=== PATIENT | female | born 1955 | race Caucasian/White ===

== ENCOUNTER 2024-07-02 13:55 | Outpatient (CLI) | payer MEDICARE, SELFPAY ==
--- NOTE | 2024-07-02 14:40 | ECG_ITS ---
Test Date: 2024-07-02 14:48:28 Measurements Intervals [place] Rate: 88 P: 42 MA: 212 QRS: -9 QRSD: 106 T: 39 QT: 357 QTc: 433 Interpretive Statements SINUS RHYTHM WITH FIRST DEGREE AV BLOCK INCOMPLETE RIGHT BUNDLE BRANCH BLOC DELAYED PRECORDIAL R/S TRANSITION BASELINE ARTIFACT- I, II, III, AVR, AVL BORDERLINE ECG No previous ECG available for comparison Electronically Signed On 07-02-2024 14:55:23 ACCOUNTING RECRUITER by Magdaleno Lyle D.O.
[2024-07-02 15:02] LABS: Hematocrit 42.3 % (37.0-47.0); Hemoglobin 14.1 g/dL (12.0-15.0); Mean Corpuscular HGB Conc 33.3 g/dl (32-36); Mean Corpuscular Hemoglobin 31.7 pg (26-34); Mean Corpuscular Volume 95.1 fl (80-100); Mean Platelet Volume 9.8 fl (7.4-10.4); Platelet Count Result 213 k/mm3 (150-375); Red Blood Count 4.45 M/mm3 (4.2-5.4); Red Cell Distribution Width 12.2 % (11.5-14.5)
[2024-07-02 15:03] LABS: Add Urine Microscopic? NO; Appearance Urine Clear (Clear); Bilirubin Urine Negative (Negative); Blood Urine Negative (Negative); Color Urine Yellow (Yellow); Glucose Urine UA Negative (Negative); Ketones Urine Negative (Negative); Leukocyte Esterase Ur Negative LEU/UL (Negative); Nitrate Urine Negative (Negative); Protein Urine Negative (Negative); Specific Grav Ur 1.005 (1.001-1.035); Urobilinogen Urine 0.2 mg/dL (<2.0); pH Urine 5.5 (5.0-9.0)
[2024-07-02 15:15] LABS: Anion Gap 13 mmol/L (4-12); Blood Urea Nitrogen 11 mg/dL (7-17); Calcium 9.7 mg/dL (8.4-10.2); Carbon Dioxide 25 mmol/L (22-30); Chloride 102 mmol/L (98-107); Estimated Glomerular Filt Rate > 60; Glucose 117 mg/dL (65-110); Potassium 3.7 mmol/L (3.4-5.0); Sodium 140 mmol/L (137-145)
[2024-07-02 15:24] LABS: Partial Thromboplastin Time 33.4 Seconds (22.3-36.8); Prothrombin Time 13.4 Seconds (11.1-14.7)
--- OUTSIDE RECORDS SUMMARY | 2024-07-02 16:40 | XMS_ITS | Encounter Summary ---
Author Organization [facility] Healthcare Address [address] [place] [address] Care Team Providers Care Traveling Crane Operator Name Role Phone Nikolai Abrams MD Primary Care Provi [facility] Encounter Details Date Type Department Care Team (Late st Contact Info) Description 07/01/2024 Results Follow-Up [facility] Medical Group [facility] [place] [address] [place] [address] [address] [place] [address] Nikolai Abrams MD [address] [facility] [address] [place] [address] Social History Tobacco Use Types Packs/Day Years Used Date Smoking Tobacco: Never Smokeless Tobacco: Never Alcohol Use Standard Drinks/Week Comments No 0 (1 standard drink = 0.6 oz pur e alcohol) AUDIT-C Answer Date Recorded Q1: How often do you have a drink containing alcohol? Never 06/16/2023 Q2: How many drinks containi ng alcohol do you have on a typical day when you are drinking? Patient does not drink Q3: How often do you have si x or more drinks on one occasion? Never 06/16/2023 PHQ-2 Answer Date Recorded PHQ-2 Total Score (If total score is 3 or more points, staff should administer the PHQ-9) 0 02/09/2024 Personal Safety Answer Date Recorded Have you ever been in or are you currently in a harmful physical or emotional relationship or is someone making you feel afraid or unsafe? 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 ROOM MESSENGER documented in this encounter Plan of Treatment Not on file documented as of this encounter Visit Diagnoses Not on filedocumented in this encounter Care Teams Traveling Crane Operator Relationship Specialty Start Date End Date Nikolai Abrams MD [address] [address] PCP - General Family Practice 02/09/24 documented as of this encounter
--- OUTSIDE RECORDS SUMMARY | 2024-07-02 16:41 | XMS_ITS | Encounter Summary ---
Author Organization [facility] Healthcare Address [address] [place] [address] Care Team Providers Care Grocery Clerk Marking Name Role Phone Morgan Watson MD Primary Care Provider [phone] Nikolai Abrams MD Primary Care Provi [facility] Encounter Details Date Type Department Care Team (Late st Contact Info) Description 04/22/2021 Telephone [facility] [address] [place] [address] Kay Perez, RT Social History Tobacco Use Types Packs/Day Years Used Date Smoking Tobacco: Never Smokeless Tobacco: Never Alcohol Use Standard Drinks/Week Comments No 0 (1 standard drink = 0.6 oz pur e alcohol) PHQ-2 Answer Date Recorded PHQ-2 Total Score (If total score is 3 or more points, staff should administer the PHQ-9) 0 02/26/2021 Comments No Sex and Gender Information Value Date Recorded Sex Assigned at Not on file Legal Sex Female 

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
--- OUTSIDE RECORDS SUMMARY | 2024-07-02 16:42 | XMS_ITS | Referral Summary ---
Author Organization [facility] Medical Office Building A Address [address] [place] [address] Care Team Providers Care Market Sales Manager Name Role Phone Nikolai Abrams MD Primary Care Provi [facility] Encounters Date Type Department Care Team Description 07/01/2024 Results Follow-Up [facility] Primary Care at [address] [id number] Nikolai Abrams MD 2024 8:52 AM HAND COREMAKER - 2024 11:59 PM HAND COREMAKER Hospital Encounter [address] [address] Screening mammogram for breast cancer Discharge Disposition: Discharge to home or self care 04/25/2024 8:50 AM HAND COREMAKER - 04/25/2024 11:59 PM HAND COREMAKER Hospital Encounter [address] [address] Neck pain Discharge Disposition: Discharge to home or self care 04/24/2024 5:00 PM HAND COREMAKER Office Visit [facility] Primary Care at [address] [place] [address] Nikolai Abrams MD Neck pain (Primary Dx); Achilles tendinitis of left lower extremity from Last 3 Months Allergies Active Allergy Reactions Criticality Noted Date [...] 04/12/2023 Assessment & Plan (04/12/2023 5:32 PM HAND COREMAKER): We discussed a comprehensive list of medical conditions and proposed recommendations for each. We discussed the importance of increased exercise, fall prevention, proper nutrition, and suggested joining [facility] to accomplish most of these goals. Patient was given an age appropriate Medicare preventive services checklist. Please see the EMR regarding details of their health risk assessment and preventive services checklist. Will see her back in 1 year for wellness visit fasting lab sooner if needed Diverticulitis 02/02/2023 Assessment & Plan (07/11/2023 8:29 PM HAND COREMAKER): Cipro metronidazole liquid diet and advance slowly [...] 05/05/2021 Assessment & Plan (05/05/2021 5:16 PM HAND COREMAKER): Suspicious for diverticulitis. Hold call CT of [...] 06/17/2020 Assessment & Plan (06/17/2020 11:51 AM HAND COREMAKER): Referral to her hand specialist as requested. 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 Assessment & Plan (04/24/2018 4:31 AM HAND COREMAKER): Continue with Zoloft Assessment & Plan (04/21/2018 1:51 PM HAND COREMAKER): Well controlled on sertraline. Call back if [...] yearly. Colonoscopy due March 2028. Follow-up the plant physiology teacher as they direct. Will see her back in 1 year for physical fasting lab sooner if needed. Assessment & Plan (02/26/2021 1:23 PM CDT): Flu shot each February. Tetanus booster every 10 years. COVID vaccine completed. Mammogram yearly. Follow-up the plant physiology teacher for breast exam and pelvic exam as they direct. Colonoscopy due March 2028. Will see her back in 1 year for wellness visit fasting lab sooner if needed. Assessment & Plan (02/25/2020 1:38 PM CDT): Flu shot each February. Tetanus booster updated today. Shingrix completed. Colonoscopy due March 2028. Mammogram yearly. Follow-up the plant physiology teacher for breast exam and pelvic exam as [...] be ordered. Mammogram January 2019. Follow-up the plant physiology teacher for breast exam and pelvic exam as they direct. We will see her back in 2 months for follow-up of her anxiety sooner if needed. Assessment & Plan (02/10/2017 1:21 PM CDT): Flu shot each February. Tetanus booster every 10 years. Bone density scan every 2 years with her plant physiology teacher. Mammogram, breast exam, pelvic exam yearly with her plant physiology teacher. Achy legs probably result of her increased physical activity. No signs of vascular insufficiency today. Call back if no improvement. We will see her back in 1 year with fasting lab sooner if needed. B12 deficiency 12/28/2016 Assessment & Plan (04/12/2023 5:31 PM HAND COREMAKER): Continue supplementation check level yearly Assessment & [...] Hypothyroidism Assessment & Plan (07/11/2023 8:30 PM HAND COREMAKER): Continue current dose of levothyroxine check TSH and FT4 before next visit adjust dose based on results. Assessment & Plan (04/12/2023 5:31 PM HAND COREMAKER): Patient is asymptomatic on current dose of levothyroxine and TSH free T4 are normal and we will repeat levels before next visit. Assessment & Plan (03/01/2022 1:19 PM CDT): Increase levothyroxine to 75 mcg daily check TSH and FT4 in 8 weeks and call back for results. Assessment & Plan (05/05/2021 5:16 PM HAND COREMAKER): Continue current dose of levothyroxine and check [...] visit. Assessment & Plan (04/24/2018 4:28 AM HAND COREMAKER): Continue with Synthroid Assessment & Plan (02/13/2018 [...] Osteopenia 09/29/2013 Overview (03/01/2022): Formerly followed by conveyor belt installer, bmd 02/2019 mild osteopenia with low frax. Repeat due 04/2023 Assessment & Plan (04/12/2023 5:32 PM HAND COREMAKER): Calcium, vitamin-D, weight-bearing exercise repeat bone density [...] Calcium, vitamin-D, weight-bearing exercise and follow-up her plant physiology teacher for bone density scan as they direct. Assessment & Plan (02/10/2017 1:19 PM CDT): Calcium, vitamin-D, weight-bearing exercise. Repeat bone density scans every 2 years with her plant physiology teacher. Multiple-type hyperlipidemia 09/29/2013 Overview (08/20/2016): MIXED HYPERLIPIDEMIA Assessment & Plan (04/12/2023 5:31 PM HAND COREMAKER): Well controlled on current therapy and will check a lipid panel and LFTs in 12 months. Assessment & Plan (03/01/2022 1:19 PM CDT): Well controlled on current therapy and will check a lipid panel and LFTs in 12 months. Assessment & Plan (05/05/2021 5:16 PM HAND COREMAKER): Continue current dose of pravastatin check lipids [...] months. Assessment & Plan (04/24/2018 4:30 AM HAND COREMAKER): Patient is on statin. Start on aspirin [...] 024 Assessment & Plan (04/12/2023 5:31 PM HAND COREMAKER): Timed get up and go test normal. Chest pain 04/24/2018 02/22/2019 Assessment & Plan (04/24/2018 4:33 AM HAND COREMAKER): Precordial chest pain. Patient's symptoms resolved with [...] test if chest pain persists or recur. Immunizations Immunization Administration Dates Next Due Influenza, [...] 06/16/2009,12/25/1997 ZOSTER LIVE 02/17/2011 ZOSTER Recombinant 06/14/2018,03/24/2018 Social History Tobacco Use Types Packs/Day Years [...] on file Legal Sex Female 8:54 AM HAND COREMAKER Gender Identity Not on file Sexual Orientation Not on file Last Filed Vital Signs Vital Sign Reading Time Taken Comments Blood Pressure 128/70 04/24/2024 4:57 PM HAND COREMAKER Pulse 78 04/24/2024 4:57 PM HAND COREMAKER Temperature 36.4 C (97.5 F) 04/24/2024 4:57 PM HAND COREMAKER Respiratory Rate 16 06/16/2023 3:44 PM HAND COREMAKER Oxygen Saturation 96% 04/24/2024 4:57 PM HAND COREMAKER Inhaled Oxygen Concentration - - Weight 76.2 kg (168 lb) 04/24/2024 4:57 PM HAND COREMAKER Height 162.6 cm (5' 4 ) 2024 8:58 AM HAND COREMAKER Body Mass Index 28.84 04/24/2024 4:57 PM HAND COREMAKER Plan of Treatment Not on file Procedures Procedure Name Priority Date/Time Associated Diagnosis Comments SCREENING MAMMOGRAM BILATERAL W HOMERO Schedule Routine, Read Routine (OP Routine) 2024 8:59 AM HAND COREMAKER Screening mammogram for breast cancer XR SPINE CERVICAL COMPLETE 4 OR 5 VW Schedule Routine, Read Routine (OP Routine) 04/25/2024 9:04 AM HAND COREMAKER Neck pain DEXA AXIAL SKELETON BONE DENSITY 1 OR MORE SITES Schedule Routine, Read Routine (OP Routine) 05/27/2023 9:52 AM HAND COREMAKER Other specified disorders of bone density and structure, multiple sites COLONOSCOPY 03/21/2018 10:45 AM HAND COREMAKER HEPATITIS C RNA, QUANTITATIVE, PCR Routine 01/27/2017 9:44 AM CDT Need for hepatitis C screening test from Last 3 Months or Most Recently Relevant to Health Maintenance Results * Screening Mammogram Bilateral W Homero (2024 8:59 AM HAND COREMAKER) Anatomical Region Laterality Modality Breast Bilateral Mammography 2024 10:0 7 AM HAND COREMAKER Impressions 2024 10:07 AM HAND COREMAKER There is no mammographic evidence of malignancy. A 1 year screening mammogram is recommended. BI-RADS: 1 - Negative. The patient has been or will be contacted. The patient will be entered into a reminder system with a target due date of 1 year for her next mammogram. Electronically signed by: Charito Floyd M.D. Narrative 2024 10:07 AM HAND COREMAKER EXAMINATION: SCREENING MAMMOGRAM BILATERAL W HOMERO ORDERING [...] 4 Or 5 Vw (04/25/2024 9:04 AM HAND COREMAKER) Anatomical Region Laterality Modality Spine N/A Computed Radiogr aphy 04/28/2024 6:43 PM HAND COREMAKER Narrative 04/28/2024 6:54 PM HAND COREMAKER EXAM DESCRIPTION: XR SPINE CERVICAL COMPLETE 4 [...] Varun Nielsen M.D. MF: LACEY Report ID: [id number] Reading Location: [place] [address] Procedure Note Varun Nielsen MD - 04/28/2024 [...] Varun Nielsen M.D. MF: LACEY Report ID: [id number] Reading Location: [place] [address] Nikolai Abrasm MD IMG XR PROCEDURES F inal Result * Dexa Axial Skeleton Bone Density 1 or 2 Site (05/27/2023 9:52 AM HAND COREMAKER) Anatomical Region Laterality Modality Body N/A Other 05/27/2023 10:0 3 AM HAND COREMAKER Narrative 05/27/2023 10:04 AM HAND COREMAKER EXAM DESCRIPTION: DEXA AXIAL SKELETON BONE DENSITY 1 OR MORE SITES REASON FOR STUDY: 67 y/o year old F with given history of: Postmenopausal status. History of parent with hip fracture. Process Operator/Model: [employer] (S/N [id number]) CLINICAL INFORMATION: Current height: 64 inches Maximum [...] Georgie Zapien M.D. TW: TW Report ID: [id number] Reading Location: [id number] Procedure Note Georgie Zapien MD - 05/27/2023 EXAM DESCRIPTION: DEXA AXIAL SKELETON BONE DENSITY 1 OR MORE SITES REASON FOR STUDY: 67 y/o year old F with given history of:Postmenopausal status. History of parent with hip fracture. Process Operator/Model: [employer] SL (S/N [id number]) CLINICAL INFORMATION: Current height: 64 inches Maximum [...] Georgie Zapien M.D. TW: TW Report ID: [id number] Reading Location: [id number] us Patricia Watson MD IMG DXA PROCEDURES Final Res ult * COLONOSCOPY (03/21/2018 10:45 AM HAND COREMAKER) Anatomical Region Laterality Modality Other Narrative Procedure Note Mike Carvalho MD - 03/21/2018 10:45 AM CST [facility] Patient Name: Hoa Awan Procedure Date: 03/21/2018 10:45 AM Date of : 1955 Admit Type: Outpatient Age: 62 Gender: Female Attending MD: Mike Carvalho M.D. Room: [facility] ENDOSCOPY ROOM 1 Note Status: Finalized Procedure: Colonoscopy Indications: Screening for colorectal malignant neoplasm Referring MD: Patricia Watson MD Providers: Mike Carvalho M.D. Impression: - [...] scope was passed under direct vision.The Colonoscope [id number] was introducedthrough the anus and advanced to [...] malignant neoplasm of colon CPT copyright 2017 [employer]. All rights reserved. The codes documented in this report are preliminary and upon telegraph printer mechanic reviewmay be revised to meet current compliance requirements. Recognized by the [employer] [employer] for promoting quality in endoscopy us Mike Carvalho MD ENDOSCOPY PROCEDURES Final Re sult * Hepatitis C RNA, quantitative, PCR (01/27/2017 9:44 AM CDT) HCV RNA IU/mL <15 NOT DETECTED <15 IU/mL [facility] [place] HCV RNA log IU/mL <1.18 NOT DETECTED <1.18 Log IU/mL [facility] [place] (Always Message) [facility] [place] Comment: The analytical performance characteristics of this assay have been determined by [employer]. The modifications have not been cleared or approved by the FDA. This assay has been validated pursuant to the CLIA regulations and is used for clinical purposes. This test was performed using the ROSALINE(R)AmpliPrep/ ROSALINE(R)TaqMan(R)HCV Test,v2.0. For more information on this test, go to: http://education.[employer]es[employer]/faq/YPB03b9 (This link is being provided for informational/ educational purposes only.) Blood specimen (specimen) 01/27/2017 9:44 AM CDT 01/28/2017 4:56 AM CDT Narrative Resulting Agency Comment Performing Organization Information: Site ID: [place] Name: [id number] Address: [address] [place] [address] [place] [id number] Director: Vamsi Zepeda D.O., MPH us Patricia Watson MD LAB MICROBIOLOGY - GENERAL O RDERABLES Final Result [place]row from Last 3 Months or Most Recently Relevant to Health Maintenance Insurance [place] [employer] MEDICARE SUPPLEMENT Advance Directives For more information, please contact: [phone] * Full Code (Latest Code Status on File) Date Activated Date Inactivated Comments 04/23/2018 7:03 PM 04/24/2018 5:31 PM * Full Code Date Activated Date Inactivated Comments 04/23/2018 7:03 PM 04/23/2018 7:03 PM * Full Code Date Activated Date Inactivated Comments 03/21/2018 10:23 AM 03/21/2018 3:48 PM * Full Code Date Activated Date Inactivated Comments 03/21/2018 10:22 AM 03/21/2018 10:23 AM Care Teams Market Sales Manager Relationship Specialty Start Date End Date Nikolai Abrams MD [address] [facility] [address] [address] PCP - General Family Practice 02/09/24
== END 2024-07-02 13:56 | disposition home or self-care (01) ==
LOC: ANHSURGERY 14:03
PROVIDERS: Visit Provider Neurological Surgery
DX: Z01.818 Encounter for other preprocedural examination (principal); I44.0 Atrioventricular block, first degree; I45.10 Unspecified right bundle-branch block; E78.5 Hyperlipidemia, unspecified; M51.26 Other intervertebral disc displacement, lumbar region
CPT/HCPCS: 36415; 80048; 81003; 85027; 85610; 85730; 93005

== ENCOUNTER 2024-07-18 18:47 | Observation (INO) | payer MEDICARE, SELFPAY ==
--- NOTE | 2024-07-02 13:58 | PC.NURSE ---
Report to the Outpatient Waiting Room, entrance under the green pavilion located off [facility], at time _6 AM on date _07/17/24 . Planned Procedure Time: __7:30 AM .? Time changes happen often and if your time is changed the preop area will call you the afternoon before. - You and your visitor will be asked to self-screen and do not enter if you have any COVID symptoms. Please call surgeon if you need to reschedule. - A mask is optional within the hospital at this time. Patients may have clear liquids (water, carbonated beverages, clear teas, apple juice) until 3 hours prior to surgery ( 4:30 AM) with a maximum of 20 ounces. - No food from midnight until time of surgery and no smoking, or chewing tobacco (or any form of nicotine). No chewing gum, candy or mints. Take only the following medications with a SIP of water on the morning of surgery: ___LEVOTHYROXINE DO NOT STOP ANY OF YOUR OTHER PRESCRIPTION MEDICATIONS PRIOR TO SURGERY EXCEPT THE FOLLOWING Hold all vitamins and supplements for 3 days per anesthesiologist.LAST DOSE 07/13/24 Please no make-up, nail bangladeshi, hairspray, perfume, deodorant, or body powder the day of surgery.? No jewelry (including any body piercings) or valuables the day of surgery, leave them at home.? Please take a shower or bath the night before, or the morning of, surgery with an antibacterial soap.? Wear comfortable, loose fitting clothing.? Children are encouraged to wear pajamas. - Jewelry must be removed prior to entering the operating room.? Rings and piercings that are not removed may be cut off. - The hospital will not accept responsibility for valuables.? - Please leave all valuables, including medications, at home the day of surgery. If you are going home after surgery, a licensed otr company driver must drive you home.? - NO public transportation without another adult if you receive anesthesia. - We recommend that an adult stay with you for 24 hours following discharge. - We also recommend that you do not drive, make important decision, drink alcoholic beverages, or take any drugs that were not prescribed by your health care provider for at least 24 hours after your discharge time. Follow any additional instructions given to you from your surgeon. VERBAL AND WRITTEN instructions given to _PATIENT and asked if any additional questions and then verbalized understanding. Patient advised to call surgeon office or pre surgery nurse liaison [phone] if any additional questions.
[2024-07-02 14:06] VITALS: BMI 29.5
[2024-07-02 14:39] VITALS: BP 142/88; PULSE 85; RESP 18; TEMP 36.8; O2SAT 100
[2024-07-17] VITALS (15 sets, daily range): BP systolic 104–138; BP diastolic 49–89; PULSE 73–109; RESP 15–23; TEMP 36.2–36.5; O2SAT 94–100; BMI 28.8
--- OUTSIDE RECORDS SUMMARY | 2024-07-17 00:40 | XMS_ITS | Encounter Summary ---
Author Organization [facility] Healthcare Address [address] [place] [address] Care Team Providers Care Gasoline Tester Name Role Phone Morgan Watson MD Primary Care Provider [phone] Nikolai Abrams MD Primary Care Provi mathew Encounter Details Date Type Department Care Team (Late st Contact Info) Description 04/22/2021 Telephone [facility] [address] [place] [address] Kay Perez, RT Social History Tobacco Use [...] on file Legal Sex Female 8:54 AM EXTENSION EDGER Gender Identity Not on file Sexual Orientation Not on file documented as of this encounter Plan of Treatment Not on file documented as of this encounter Visit Diagnoses Not on filedocumented in this encounter Care Teams Gasoline Tester Relationship Specialty Start Date End Date Morgan Watson MD PCP - General 07/19/13 02/08/24 Nikolai Abrams MD [address] [facility] [address] [place] [address] PCP - General Family Practice 02/09/24 documented as of this encounter
--- OUTSIDE RECORDS SUMMARY | 2024-07-17 00:40 | XMS_ITS | Encounter Summary ---
Author Organization [facility] Healthcare Address [address] [place] [address] Care Team Providers Care Muffle Operator Name Role Phone Nikolai Abrams MD Primary Care Provi [facility] Encounter Details Date Type Department Care Team (Late st Contact Info) Description 07/01/2024 Results Follow-Up [facility] Primary Care at [place] [address] [place] [address] [address] [place] [address] Nikolai Abrams MD [address] [facility] [address] [place] [address] Social History Tobacco Use Types [...] on file Legal Sex Female 8:54 AM LAN SPECIALIST Gender Identity Not on file Sexual Orientation Not on file documented as of this encounter Miscellaneous Notes * Result Encounter Note - Belinda Casas MA - 07/02/2024 11:03 AM LAN SPECIALIST Normal mammogram message sent thru [employer]. SPECIALIST documented in this encounter Plan of Treatment Not on file documented as of this encounter Visit Diagnoses Not on filedocumented in this encounter Care Teams Muffle Operator Relationship Specialty Start Date End Date Nikolai Abrams MD [address] [address] PCP - General Family Practice 02/09/24 documented as of this encounter
--- OUTSIDE RECORDS SUMMARY | 2024-07-17 00:40 | XMS_ITS | Referral Summary ---
Author Organization [facility] Address [address] [place] [address] Care Team Providers Care Director Service Name Role Phone Nikolai Abrams MD Primary Care Provi [facility] Encounters Date Type Department Care Team Description 07/01/2024 Results Follow-Up [facility] Primary Care at [address] [phone] Nikolai Abrams MD 2024 8:52 AM NURSING ADMINISTRATOR - 2024 11:59 PM NURSING ADMINISTRATOR Hospital Encounter [address] [address] Screening mammogram for breast cancer Discharge Disposition: Discharge to home or self care 04/25/2024 8:50 AM NURSING ADMINISTRATOR - 04/25/2024 11:59 PM NURSING ADMINISTRATOR Hospital Encounter [address] [address] Neck pain Discharge Disposition: Discharge to home or self care 04/24/2024 5:00 PM NURSING ADMINISTRATOR Office Visit [facility] Primary Care at [address] [place] [address] Nikolai Abrams MD Neck pain [...] 04/12/2023 Assessment & Plan (04/12/2023 5:32 PM NURSING ADMINISTRATOR): We discussed a comprehensive list of medical conditions and proposed recommendations for each. We discussed the importance of increased exercise, fall prevention, proper nutrition, and suggested joining [facility] to accomplish most of these goals. Patient was given an age appropriate Medicare preventive services checklist. Please see the EMR regarding details of their health risk assessment and preventive services checklist. Will see her back in 1 year for wellness visit fasting lab sooner if needed Diverticulitis 02/02/2023 Assessment & Plan (07/11/2023 8:29 PM NURSING ADMINISTRATOR): Cipro metronidazole liquid diet and advance slowly [...] 05/05/2021 Assessment & Plan (05/05/2021 5:16 PM NURSING ADMINISTRATOR): Suspicious for diverticulitis. Hold call CT of [...] 06/17/2020 Assessment & Plan (06/17/2020 11:51 AM NURSING ADMINISTRATOR): Referral to her hand specialist as requested. 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 Assessment & Plan (04/24/2018 4:31 AM NURSING ADMINISTRATOR): Continue with Zoloft Assessment & Plan (04/21/2018 1:51 PM NURSING ADMINISTRATOR): Well controlled on sertraline. Call back if [...] yearly. Colonoscopy due March 2028. Follow-up the clay machine operator as they direct. Will see her back in 1 year for physical fasting lab sooner if needed. Assessment & Plan (02/26/2021 1:23 PM CDT): Flu shot each February. Tetanus booster every 10 years. COVID vaccine completed. Mammogram yearly. Follow-up the clay machine operator for breast exam and pelvic exam as they direct. Colonoscopy due March 2028. Will see her back in 1 year for wellness visit fasting lab sooner if needed. Assessment & Plan (02/25/2020 1:38 PM CDT): Flu shot each February. Tetanus booster updated today. Shingrix completed. Colonoscopy due March 2028. Mammogram yearly. Follow-up the clay machine operator for breast exam and pelvic exam as [...] be ordered. Mammogram January 2019. Follow-up the clay machine operator for breast exam and pelvic exam as they direct. We will see her back in 2 months for follow-up of her anxiety sooner if needed. Assessment & Plan (02/10/2017 1:21 PM CDT): Flu shot each February. Tetanus booster every 10 years. Bone density scan every 2 years with her clay machine operator. Mammogram, breast exam, pelvic exam yearly with her clay machine operator. Achy legs probably result of her increased physical activity. No signs of vascular insufficiency today. Call back if no improvement. We will see her back in 1 year with fasting lab sooner if needed. B12 deficiency 12/28/2016 Assessment & Plan (04/12/2023 5:31 PM NURSING ADMINISTRATOR): Continue supplementation check level yearly Assessment & [...] Hypothyroidism Assessment & Plan (07/11/2023 8:30 PM NURSING ADMINISTRATOR): Continue current dose of levothyroxine check TSH and FT4 before next visit adjust dose based on results. Assessment & Plan (04/12/2023 5:31 PM NURSING ADMINISTRATOR): Patient is asymptomatic on current dose of levothyroxine and TSH free T4 are normal and we will repeat levels before next visit. Assessment & Plan (03/01/2022 1:19 PM CDT): Increase levothyroxine to 75 mcg daily check TSH and FT4 in 8 weeks and call back for results. Assessment & Plan (05/05/2021 5:16 PM NURSING ADMINISTRATOR): Continue current dose of levothyroxine and check [...] visit. Assessment & Plan (04/24/2018 4:28 AM NURSING ADMINISTRATOR): Continue with Synthroid Assessment & Plan (02/13/2018 [...] Osteopenia 09/29/2013 Overview (03/01/2022): Formerly followed by cylinder sander operator, bmd 02/2019 mild osteopenia with low frax. Repeat due 04/2023 Assessment & Plan (04/12/2023 5:32 PM NURSING ADMINISTRATOR): Calcium, vitamin-D, weight-bearing exercise repeat bone density [...] Calcium, vitamin-D, weight-bearing exercise and follow-up her clay machine operator for bone density scan as they direct. Assessment & Plan (02/10/2017 1:19 PM CDT): Calcium, vitamin-D, weight-bearing exercise. Repeat bone density scans every 2 years with her clay machine operator. Multiple-type hyperlipidemia 09/29/2013 Overview (08/20/2016): MIXED HYPERLIPIDEMIA Assessment & Plan (04/12/2023 5:31 PM NURSING ADMINISTRATOR): Well controlled on current therapy and will check a lipid panel and LFTs in 12 months. Assessment & Plan (03/01/2022 1:19 PM CDT): Well controlled on current therapy and will check a lipid panel and LFTs in 12 months. Assessment & Plan (05/05/2021 5:16 PM NURSING ADMINISTRATOR): Continue current dose of pravastatin check lipids [...] months. Assessment & Plan (04/24/2018 4:30 AM NURSING ADMINISTRATOR): Patient is on statin. Start on aspirin [...] 024 Assessment & Plan (04/12/2023 5:31 PM NURSING ADMINISTRATOR): Timed get up and go test normal. Chest pain 04/24/2018 02/22/2019 Assessment & Plan (04/24/2018 4:33 AM NURSING ADMINISTRATOR): Precordial chest pain. Patient's symptoms resolved with [...] on file Legal Sex Female 8:54 AM NURSING ADMINISTRATOR Gender Identity Not on file Sexual Orientation Not on file Last Filed Vital Signs Vital Sign Reading Time Taken Comments Blood Pressure 128/70 04/24/2024 4:57 PM NURSING ADMINISTRATOR Pulse 78 04/24/2024 4:57 PM NURSING ADMINISTRATOR Temperature 36.4 C (97.5 F) 04/24/2024 4:57 PM NURSING ADMINISTRATOR Respiratory Rate 16 06/16/2023 3:44 PM NURSING ADMINISTRATOR Oxygen Saturation 96% 04/24/2024 4:57 PM NURSING ADMINISTRATOR Inhaled Oxygen Concentration - - Weight 76.2 kg (168 lb) 04/24/2024 4:57 PM NURSING ADMINISTRATOR Height 162.6 cm (5' 4 ) 2024 8:58 AM NURSING ADMINISTRATOR Body Mass Index 28.84 04/24/2024 4:57 PM NURSING ADMINISTRATOR Plan of Treatment Not on file Procedures Procedure Name Priority Date/Time Associated Diagnosis Comments SCREENING MAMMOGRAM BILATERAL W HOMERO Schedule Routine, Read Routine (OP Routine) 2024 8:59 AM NURSING ADMINISTRATOR Screening mammogram for breast cancer XR SPINE CERVICAL COMPLETE 4 OR 5 VW Schedule Routine, Read Routine (OP Routine) 04/25/2024 9:04 AM NURSING ADMINISTRATOR Neck pain DEXA AXIAL SKELETON BONE DENSITY 1 OR MORE SITES Schedule Routine, Read Routine (OP Routine) 05/27/2023 9:52 AM NURSING ADMINISTRATOR Other specified disorders of bone density and structure, multiple sites COLONOSCOPY 03/21/2018 10:45 AM NURSING ADMINISTRATOR HEPATITIS C RNA, QUANTITATIVE, PCR Routine 01/27/2017 9:44 AM CDT Need for hepatitis C screening test from Last 3 Months or Most Recently Relevant to Health Maintenance Results * Screening Mammogram Bilateral W Homero (2024 8:59 AM NURSING ADMINISTRATOR) Anatomical Region Laterality Modality Breast Bilateral Mammography 2024 10:0 7 AM NURSING ADMINISTRATOR Impressions 2024 10:07 AM NURSING ADMINISTRATOR There is no mammographic evidence of malignancy. A 1 year screening mammogram is recommended. BI-RADS: 1 - Negative. The patient has been or will be contacted. The patient will be entered into a reminder system with a target due date of 1 year for her next mammogram. Electronically signed by: Charito Floyd M.D. Narrative 2024 10:07 AM NURSING ADMINISTRATOR EXAMINATION: SCREENING MAMMOGRAM BILATERAL W HOMERO ORDERING [...] 4 Or 5 Vw (04/25/2024 9:04 AM NURSING ADMINISTRATOR) Anatomical Region Laterality Modality Spine N/A Computed Radiogr aphy 04/28/2024 6:43 PM NURSING ADMINISTRATOR Narrative 04/28/2024 6:54 PM NURSING ADMINISTRATOR EXAM DESCRIPTION: XR SPINE CERVICAL COMPLETE 4 [...] Varun Nielsen M.D. MF: LACEY Report ID: [id number] Reading Location: [place] [address] Procedure Note Varun Nielsen MD - 04/28/2024 [...] Varun Nielsen M.D. MF: LACEY Report ID: [id number] Reading Location: [place] [address] Nikolai Abrams MD IMG XR PROCEDURES F inal Result * Dexa Axial Skeleton Bone Density 1 or 2 Site (05/27/2023 9:52 AM NURSING ADMINISTRATOR) Anatomical Region Laterality Modality Body N/A Other 05/27/2023 10:0 3 AM NURSING ADMINISTRATOR Narrative 05/27/2023 10:04 AM NURSING ADMINISTRATOR EXAM DESCRIPTION: DEXA AXIAL SKELETON BONE DENSITY 1 OR MORE SITES REASON FOR STUDY: 67 y/o year old F with given history of: Postmenopausal status. History of parent with hip fracture. Support Clerk/Model: [employer] (S/N [id number]) CLINICAL INFORMATION: Current height: 64 inches Maximum [...] Georgie Zapien M.D. TW: TW Report ID: [id number] Reading Location: [id number] Procedure Note Georgie Zapien MD - 05/27/2023 EXAM DESCRIPTION: DEXA AXIAL SKELETON BONE DENSITY 1 OR MORE SITES REASON FOR STUDY: 67 y/o year old F with given history of:Postmenopausal status. History of parent with hip fracture. Support Clerk/Model: [employer] SL (S/N [id number]) CLINICAL INFORMATION: Current height: 64 inches Maximum [...] Georgie Zapien M.D. TW: TW Report ID: [id number] Reading Location: [id number] us Patricia Watson MD IMG DXA PROCEDURES Final Res ult * COLONOSCOPY (03/21/2018 10:45 AM NURSING ADMINISTRATOR) Anatomical Region Laterality Modality Other Narrative Procedure Note Mike Carvalho MD - 03/21/2018 10:45 AM CST [facility] Patient Name: Hoa Awan Procedure Date: 03/21/2018 10:45 AM Date of : 1955 Admit Type: Outpatient Age: 62 Gender: Female Attending MD: Mike Carvalho M.D. Room: [facility] 1 Note Status: Finalized Procedure: [...] scope was passed under direct vision.The Colonoscope [id number] was introducedthrough the anus and advanced to [...] malignant neoplasm of colon CPT copyright 2017 [employer]. All rights reserved. The codes documented in this report are preliminary and upon fruit or nut picker reviewmay be revised to meet current compliance requirements. Recognized by the [employer] for promoting quality [...] of this assay have been determined by [employer]. The modifications have not been cleared or approved by the FDA. This assay has been validated pursuant to the CLIA regulations and is used for clinical purposes. This test was performed using the ROSALINE(R)AmpliPrep/ ROSALINE(R)TaqMan(R)HCV Test,v2.0. For more information on this test, go to: http://education.[employer]/faq/UFU70z8 (This link is being provided for informational/ educational purposes only.) Blood specimen (specimen) 01/27/2017 9:44 AM CDT 01/28/2017 4:56 AM CDT Narrative Resulting Agency Comment Performing Organization Information: Site ID: [id number] Name: [employer] Address: [address] [place] [address] [place]rera [id number] Director: Vamsi Zepeda D.O., MPH us Patricia Watson MD LAB MICROBIOLOGY - GENERAL O RDERABLES Final Result ME[facility]AN [place] from Last 3 Months or Most Recently Relevant to Health Maintenance [place]ARE [place] [employer] MEDICARE SUPPLEMENT Advance Directives For more information, please contact: [phone] * Full Code (Latest Code Status on File) Date Activated Date Inactivated Comments 04/23/2018 7:03 PM 04/24/2018 5:31 PM * Full Code Date Activated Date Inactivated Comments 04/23/2018 7:03 PM 04/23/2018 7:03 PM * Full Code Date Activated Date Inactivated Comments 03/21/2018 10:23 AM 03/21/2018 3:48 PM * Full Code Date Activated Date Inactivated Comments 03/21/2018 10:22 AM 03/21/2018 10:23 AM Care Teams Director Service Relationship Specialty Start Date End Date Nikolai Abrams MD [address] [facility] [address] [place] [address] PCP - General Family Practice 02/09/24
--- OUTSIDE RECORDS SUMMARY | 2024-07-17 00:40 | XMS_ITS | Clinical Summary ---
Author Organization [facility] Medical Office Building A Address [address] [place] [address] Care Team Providers Care Unit Secy Name Role Phone Nikolai Abrams MD Primary [...] 04/12/2023 Assessment & Plan (04/12/2023 5:32 PM SQUIRREL WORKER): We discussed a comprehensive list of medical [...] 02/02/2023 Assessment & Plan (07/11/2023 8:29 PM SQUIRREL WORKER): Cipro metronidazole liquid diet and advance slowly [...] 05/05/2021 Assessment & Plan (05/05/2021 5:16 PM SQUIRREL WORKER): Suspicious for diverticulitis. Hold call CT of [...] 06/17/2020 Assessment & Plan (06/17/2020 11:51 AM SQUIRREL WORKER): Referral to her hand specialist as requested. 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 Assessment & Plan (04/24/2018 4:31 AM SQUIRREL WORKER): Continue with Zoloft Assessment & Plan (04/21/2018 1:51 PM SQUIRREL WORKER): Well controlled on sertraline. Call back if [...] yearly. Colonoscopy due March 2028. Follow-up the chief of staff doctor as they direct. Will see her back in 1 year for physical fasting lab sooner if needed. Assessment & Plan (02/26/2021 1:23 PM CDT): Flu shot each February. Tetanus booster every 10 years. COVID vaccine completed. Mammogram yearly. Follow-up the chief of staff doctor for breast exam and pelvic exam as they direct. Colonoscopy due March 2028. Will see her back in 1 year for wellness visit fasting lab sooner if needed. Assessment & Plan (02/25/2020 1:38 PM CDT): Flu shot each February. Tetanus booster updated today. Shingrix completed. Colonoscopy due March 2028. Mammogram yearly. Follow-up the chief of staff doctor for breast exam and pelvic exam as [...] be ordered. Mammogram January 2019. Follow-up the chief of staff doctor for breast exam and pelvic exam as they direct. We will see her back in 2 months for follow-up of her anxiety sooner if needed. Assessment & Plan (02/10/2017 1:21 PM CDT): Flu shot each February. Tetanus booster every 10 years. Bone density scan every 2 years with her chief of staff doctor. Mammogram, breast exam, pelvic exam yearly with her chief of staff doctor. Achy legs probably result of her increased physical activity. No signs of vascular insufficiency today. Call back if no improvement. We will see her back in 1 year with fasting lab sooner if needed. B12 deficiency 12/28/2016 Assessment & Plan (04/12/2023 5:31 PM SQUIRREL WORKER): Continue supplementation check level yearly Assessment & [...] Hypothyroidism Assessment & Plan (07/11/2023 8:30 PM SQUIRREL WORKER): Continue current dose of levothyroxine check TSH and FT4 before next visit adjust dose based on results. Assessment & Plan (04/12/2023 5:31 PM SQUIRREL WORKER): Patient is asymptomatic on current dose of levothyroxine and TSH free T4 are normal and we will repeat levels before next visit. Assessment & Plan (03/01/2022 1:19 PM CDT): Increase levothyroxine to 75 mcg daily check TSH and FT4 in 8 weeks and call back for results. Assessment & Plan (05/05/2021 5:16 PM SQUIRREL WORKER): Continue current dose of levothyroxine and check [...] visit. 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 Repeat due 04/2023 Assessment & Plan (04/12/2023 5:32 PM SQUIRREL WORKER): Calcium, vitamin-D, weight-bearing exercise repeat bone density [...] Calcium, vitamin-D, weight-bearing exercise and follow-up her chief of staff doctor for bone density scan as they direct. Assessment & Plan (02/10/2017 1:19 PM CDT): Calcium, vitamin-D, weight-bearing exercise. Repeat bone density scans every 2 years with her chief of staff doctor. Multiple-type hyperlipidemia 09/29/2013 Overview (08/20/2016): MIXED HYPERLIPIDEMIA Assessment & Plan (04/12/2023 5:31 PM SQUIRREL WORKER): Well controlled on current therapy and will check a lipid panel and LFTs in 12 months. Assessment & Plan (03/01/2022 1:19 PM CDT): Well controlled on current therapy and will check a lipid panel and LFTs in 12 months. Assessment & Plan (05/05/2021 5:16 PM SQUIRREL WORKER): Continue current dose of pravastatin check lipids [...] months. Assessment & Plan (04/24/2018 4:30 AM SQUIRREL WORKER): Patient is on statin. Start on aspirin [...] 024 Assessment & Plan (04/12/2023 5:31 PM SQUIRREL WORKER): Timed get up and go test normal. Chest pain 04/24/2018 02/22/2019 Assessment & Plan (04/24/2018 4:33 AM SQUIRREL WORKER): Precordial chest pain. Patient's symptoms resolved with [...] Department Care Team Description 07/01/2024 Results Follow-Up [facility] Primary Care at [address] [address] Nikolai Abrams MD 2024 8:52 AM SQUIRREL WORKER - 2024 11:59 PM SQUIRREL WORKER Hospital Encounter [address] [address] Screening mammogram for breast cancer Discharge Disposition: Discharge to home or self care 04/25/2024 8:50 AM SQUIRREL WORKER - 04/25/2024 11:59 PM SQUIRREL WORKER Hospital Encounter [address] [address] Neck pain Discharge Disposition: Discharge to home or self care 04/24/2024 5:00 PM SQUIRREL WORKER Office Visit [facility] Primary Care at [address] [address] Nikolai Abrams MD Neck pain [...] herniated disc repair : Dr Dominguez - [facility] OTHER SURGICAL HISTORY right carpal tunnel surgery : Dr Dominguez - [facility] OTHER SURGICAL HISTORY Lumbar spine diskectomy 09/24: Dr Dominguez OTHER SURGICAL HISTORY 05/16/1992 - 05/15/1993 ELENA, one ovary left (2/2 endometriosis) OTHER SURGICAL HISTORY 05/16/2014 - 05/15/2015 gi bleed : Medical Management OOPHORECTOMY FINGER TENDON REPAIR 12/12/2018 Left 3rd finger hammer repair CARPAL TUNNEL RELEASE 04/15/2019 - 05/15/2019 Left HYSTERECTOMY 05/16/1993 - 05/15/1994 Medical History Medical History Date Comments 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 Vertigo 2003 Vertigo Hx Other Medical HNP [...] on file Legal Sex Female 8:54 AM SQUIRREL WORKER Gender Identity Not on file Sexual Orientation Not on file Obstetrics History Para Term AB IAB SAB Ectopic Multiple Livin g Live Births 2 2 2 Date Outcome GA Total Labor Labor/2nd/3rd Weight Sex Type Anes PTL Chela A1 A5 Name Clin Term Term Last Filed Vital Signs Vital Sign Reading Time Taken Comments Blood Pressure 128/70 04/24/2024 4:57 PM SQUIRREL WORKER Pulse 78 04/24/2024 4:57 PM SQUIRREL WORKER Temperature 36.4 C (97.5 F) 04/24/2024 4:57 PM SQUIRREL WORKER Respiratory Rate 16 06/16/2023 3:44 PM SQUIRREL WORKER Oxygen Saturation 96% 04/24/2024 4:57 PM SQUIRREL WORKER Inhaled Oxygen Concentration - - Weight 76.2 kg (168 lb) 04/24/2024 4:57 PM SQUIRREL WORKER Height 162.6 cm (5' 4 ) 2024 8:58 AM SQUIRREL WORKER Body Mass Index 28.84 04/24/2024 4:57 PM SQUIRREL WORKER Plan of Treatment Health Maintenance Due Date [...] Read Routine (OP Routine) 2024 8:59 AM SQUIRREL WORKER Screening mammogram for breast cancer XR SPINE CERVICAL COMPLETE 4 OR 5 VW Schedule Routine, Read Routine (OP Routine) 04/25/2024 9:04 AM SQUIRREL WORKER Neck pain DEXA AXIAL SKELETON BONE DENSITY 1 OR MORE SITES Schedule Routine, Read Routine (OP Routine) 05/27/2023 9:52 AM SQUIRREL WORKER Other specified disorders of bone density and structure, multiple sites COLONOSCOPY 03/21/2018 10:45 AM SQUIRREL WORKER HEPATITIS C RNA, QUANTITATIVE, PCR Routine 01/27/2017 9:44 AM CDT Need for hepatitis C screening test from Last 3 Months or Most Recently Relevant to Health Maintenance Results * Screening Mammogram Bilateral W Homero (2024 8:59 AM SQUIRREL WORKER) Anatomical Region Laterality Modality Breast Bilateral Mammography 2024 10:0 7 AM SQUIRREL WORKER Impressions 2024 10:07 AM SQUIRREL WORKER There is no mammographic evidence of malignancy. A 1 year screening mammogram is recommended. BI-RADS: 1 - Negative. The patient has been or will be contacted. The patient will be entered into a reminder system with a target due date of 1 year for her next mammogram. Electronically signed by: Charito Floyd M.D. Narrative 2024 10:07 AM SQUIRREL WORKER EXAMINATION: SCREENING MAMMOGRAM BILATERAL W HOMERO ORDERING [...] 4 Or 5 Vw (04/25/2024 9:04 AM SQUIRREL WORKER) Anatomical Region Laterality Modality Spine N/A Computed Radiogr aphy 04/28/2024 6:43 PM SQUIRREL WORKER Narrative 04/28/2024 6:54 PM SQUIRREL WORKER EXAM DESCRIPTION: XR SPINE CERVICAL COMPLETE 4 [...] Varun Nielsen M.D. MF: LACEY Report ID: [id number] Reading Location: [place] [address] Procedure Note Varun Nielsen MD - 04/28/2024 [...] Varun Nielsen M.D. MF: LACEY Report ID: [id number] Reading Location: [place] [address] Nikolai Abrams MD IMG XR PROCEDURES F inal Result * Dexa Axial Skeleton Bone Density 1 or 2 Site (05/27/2023 9:52 AM SQUIRREL WORKER) Anatomical Region Laterality Modality Body N/A Other 05/27/2023 10:0 3 AM SQUIRREL WORKER Narrative 05/27/2023 10:04 AM SQUIRREL WORKER EXAM DESCRIPTION: DEXA AXIAL SKELETON BONE DENSITY 1 OR MORE SITES REASON FOR STUDY: 67 y/o year old F with given history of: Postmenopausal status. History of parent with hip fracture. Vehicle Return Associate/Model: [employer] (S/N [id number]) CLINICAL INFORMATION: Current height: 64 inches Maximum [...] Georgie Zapien M.D. TW: TW Report ID: [id number] Reading Location: [id number] Procedure Note Georgie Zapien MD - 05/27/2023 EXAM DESCRIPTION: DEXA AXIAL SKELETON BONE DENSITY 1 OR MORE SITES REASON FOR STUDY: 67 y/o year old F with given history of:Postmenopausal status. History of parent with hip fracture. Vehicle Return Associate/Model: [employer] SL (S/N [id number]) CLINICAL INFORMATION: Current height: 64 inches Maximum [...] Georgie Zapien M.D. TW: TW Report ID: [id number] Reading Location: [id number] Patricia Watson MD IMG DXA PROCEDURES Final Res ult * COLONOSCOPY (03/21/2018 10:45 AM SQUIRREL WORKER) Anatomical Region Laterality Modality Other Narrative Procedure Note Mike Carvalho MD - 03/21/2018 10:45 AM CST [facility] Patient Name: Hoa Barbosa Procedure Date: 03/21/2018 10:45 AM Date of : 1955 Admit Type: Outpatient Age: 62 Gender: Female Attending MD: Mike Carvalho M.D. Room: [facility] ENDOSCOPY ROOM 1 Note Status: Finalized Procedure: [...] scope was passed under direct vision.The Colonoscope [id number] was introducedthrough the anus and advanced to [...] malignant neoplasm of colon CPT copyright 2017 [employer]. All rights reserved. The codes documented in this report are preliminary and upon dish person reviewmay be revised to meet current compliance requirements. Recognized by the [employer] for promoting quality in endoscopy us Mike Carvalho MD ENDOSCOPY PROCEDURES Final Re sult * Hepatitis C RNA, quantitative, PCR (01/27/2017 9:44 AM CDT) HCV RNA IU/mL <15 NOT DETECTED <15 IU/mL [employer] [facility] [place] HCV RNA log IU/mL <1.18 NOT DETECTED <1.18 Log IU/mL [employer] [facility] [place] (Always Message) [facility] [place] Comment: The analytical performance characteristics of this assay have been determined by [employer]. The modifications have not been cleared or approved by the FDA. This assay has been validated pursuant to the CLIA regulations and is used for clinical purposes. This test was performed using the ROSALINE(R)AmpliPrep/ ROSALINE(R)TaqMan(R)HCV Test,v2.0. For more information on this test, go to: http://education.[employer]/faq/CBU74n5 (This link is being provided for informational/ educational purposes only.) Blood specimen (specimen) 01/27/2017 9:44 AM CDT 01/28/2017 4:56 AM CDT Narrative Resulting Agency Comment Performing Organization Information: Site ID: [place] Name: [facility] Address: [address] [address] Director: Vamsi Zepeda D.O., MPH us Patricia Watson MD LAB MICROBIOLOGY - GENERAL O RDERABLES Final Result [employer] [place] ME[place]rera from Last 3 Months or Most Recently Relevant to Health Maintenance Insurance [place] MEDICARE [facility] Address: [address] [address] [place] [address] [facility] MEDICARE SUPPLEMENT Advance Directives For more information, please contact: [phone] * Full Code (Latest Code Status on File) Date Activated Date Inactivated Comments 04/23/2018 7:03 PM 04/24/2018 5:31 PM * Full Code Date Activated Date Inactivated Comments 04/23/2018 7:03 PM 04/23/2018 7:03 PM * Full Code Date Activated Date Inactivated Comments 03/21/2018 10:23 AM 03/21/2018 3:48 PM * Full Code Date Activated Date Inactivated Comments 03/21/2018 10:22 AM 03/21/2018 10:23 AM Care Teams Unit Secy Relationship Specialty Start Date End Date Nikolai Abrams MD [address] [facility] [address] [place] [address] PCP - General Family Practice 02/09/24
--- NOTE | 2024-07-17 06:39 | WPDANESEPPF ---
Anes - Initial Pre Proc Eval Procedure: Operation Date: 07/17/24 07:30 Proposed Procedures p L3-4 Posterior Lumbar Interbody Fusion, Revision Posterior Instrumentation, Left L2-3 Keo Laminectomy - Pankaj Dominguez MD Date/Time: 07/17/24 06:39 Surgeon: Pankaj Dominguez MD Pre Op Diagnosis: L3-4 herniated disc, left L2-3 lateral stenosis Patient Data Age: 69 Gender: F Height: 1.63 m Weight: 78 kg Last Vital Signs Temp 36.8 C 07/02/24 14:39 Pulse 85 07/02/24 14:39 Resp 18 07/02/24 14:39 BP 142/88 H 07/02/24 14:39 Pulse Ox 100 07/02/24 14:39 O2 Del Method Room Air 07/02/24 14:39 Allergies Allergy/AdvReac Type Severity Reaction Status Date / Time codeine AdvReac Nausea Verified 07/02/24 14:07 Home Medications ?Medication ?Instructions ?Recorded ?Confirmed ?Type cetirizine 10 mg capsule (Zyrtec) 10 mg PO DAILY 03/15/24 07/17/24 History levothyroxine 75 mcg tablet 88 mcg PO DAILY 03/15/24 07/17/24 History mecobalamin (vitamin B12) 500 mcg 500 mcg PO DAILY 03/15/24 07/17/24 History chewable tablet multivitamin 1 tablet PO DAILY 03/15/24 07/17/24 History pravastatin 20 mg tablet 20 mg PO HS 03/15/24 07/17/24 History Patient hx anesthesia problems: post op nausea/vomiting Family hx anesthesia problems: none Results Review: All pre-operative results and documents have been reviewed as part of the pre-operative evaluation. [facility] Past Medical History Medical History (Updated 07/17/24 @ 06:39 by Eduardo Blank MD) Thyroid disorder Hyperlipidemia Surgical History Surgical History (Updated 07/17/24 @ 06:40 by Eduardo Blank MD) H/O: hysterectomy History of lumbar surgery Family History Family History Father Asthma Hypertension Mother Diabetes mellitus Hypertension Heart disease Other Asthma Social History Social History Smoking status: Never smoker Alcohol intake: never Living arrangements: with family Spiritual care concerns: No Anes - Eval Final PreProcedure Day of Procedure 07/17/24 06:39 Patient weight: overweight Heart: regular rate and rhythm Lungs: clear to auscultation Airway: Mallampati scale class II Neurological: alert and oriented Last oral intake: >/= 8 hours ASA classification: II Emergent: no Anesthetic plan: proceed Anesthesia type and monitoring: general ETT and standard monitoring Results Review: All pre-operative results and documents have been reviewed as part of the pre-operative evaluation. Informed Consent: The patient's anesthetic plan and its attendant risks and benefits were discussed with the patient/family/POA. Questions were solicited and answers provided to the satisfaction of the patient/family/POA.
[2024-07-17] MEDS: LACTATED RINGERS 1,000 ML 30 ML IV CONT ×2 (07:31→10:21)
--- NOTE | 2024-07-17 07:47 | PM.IMHP ---
H&P: HPI History of Present Illness Date/Time: 07/17/24 07:47 Chief Complaint: Back and leg pain Narrative: Hoa is a 68-year-old female who is well known to me for problems related to her back is undergone fusion at L4-5 and L5-S1 in the past. She did well after these operations. Now for several months, since just before September she had the onset of pain in her back with burning into her lower extremities. This is worse if she has been sitting or specially at night but also bothers her during the day and is severe limiting for her. She does not report specific muscle group weakness or dermatomal numbness. She is not having bowel or bladder difficulty. She had an MRI evaluation which is available for review today. She is years [facility] definitive management of her problem. She is only able to walk short distances and has significant difficulty sleeping at night. Review of Systems Review of Systems: All systems reviewed & are unremarkable except as noted in HPI and below Denies chills, Denies fever, Denies weight gain and Denies weight loss Eyes Denies change in vision and Denies diplopia ENT Denies disequilibrium Card Denies chest pain and Denies dyspnea Resp Denies cough and Denies dyspnea GI Denies abdominal pain, Denies change in bowel habits, Denies fecal incontinence and Denies vomiting Denies hematuria, Denies oliguria, Denies difficulty urinating, Denies dysuria, Denies urinary frequency, Denies urinary hesitancy, Denies urinary incontinence and Denies urinary urgency Musc Reports as per HPI Skin/ Breast Reports system reviewed and no additional complaints, except as documented Neuro Reports as per HPI Psych Reports no additional complaints, Denies depression and Denies hopelessness Endo Reports no additional complaints and Denies polyuria Naun/ Lymph Reports no additional complaints Aller/ Immun Reports no additional complaints [facility] Past Medical History Medical History (Updated 07/17/24 @ 06:39 by Eduardo Blank MD) Thyroid disorder Hyperlipidemia Surgical History Surgical History (Updated 07/17/24 @ 06:40 by Eduardo Blank MD) H/O: hysterectomy History of lumbar surgery Family History Family History Father Asthma Hypertension Mother Diabetes mellitus Hypertension Heart disease Other Asthma Social History Social History Smoking status: Never smoker Alcohol intake: never Living arrangements: with family Spiritual care concerns: No Meds Home Medications and Allergies Home Medications ?Medication ?Instructions ?Recorded ?Confirmed ?Type cetirizine 10 mg capsule (Zyrtec) 10 mg PO DAILY 03/15/24 07/17/24 History levothyroxine 75 mcg tablet 88 mcg PO DAILY 03/15/24 07/17/24 History mecobalamin (vitamin B12) 500 mcg 500 mcg PO DAILY 03/15/24 07/17/24 History chewable tablet multivitamin 1 tablet PO DAILY 03/15/24 07/17/24 History pravastatin 20 mg tablet 20 mg PO HS 03/15/24 07/17/24 History Allergies Allergy/AdvReac Type Severity Reaction Status Date / Time codeine AdvReac Nausea Verified 07/17/24 07:23 Vital Signs Vital Signs - 24 hr 07/17/24 07:24 Temperature 97.7 F Pulse Rate 109 H Blood Pressure 138/89 Pulse Oximetry 100 Oxygen Delivery Room Air Exam Narrative: General: cooperative, no acute distress, well developed, alert and awake Orientation/Consciousness: oriented to person, oriented to place and oriented to time Constitutional Limitations: no limitations Other: The patient is a normally developed, normal appearing male sitting on the examination table in no acute distress. He is awake, alert, and oriented x3 with good fund of knowledge, recall of events, and fluent speech. [facility] Head: normocephalic and atraumatic Ears: external ears normal Face/Nose/Sinus: Normal external nose present Eyes Eyelids: eyelids normal Pupils: Yes Pupils normal by confrontation EOM: EOMs intact bilaterally Neck General: Yes no meningeal signs, Yes supple and Yes no JVD Resp Effort/Inspection: normal respiratory effort and able to speak in complete sentences Cardio Rate: Yes regular rate GI Inspection: No abdominal distension Musc Other: Examination of the back reveals no tenderness. Range of motion of the back is full without pain in forward flexion, extension, and lateral rotation to both sides. Straight leg raise is negative bilaterally. Frank?s test is negative bilaterally. Skin General: normal color Neuro General: Yes oriented to person, Yes oriented to place, Yes oriented to time, Yes normal cognition and Yes no meningeal signs Cranial Nerves: Yes CN's II-XII intact bilaterally Other: Motor: Strength is normal, 5/5, throughout all muscle groups of the bilateral upper and lower extremities to direct confrontation. Sensory: Sensation is intact to light touch throughout the upper and lower extremities bilaterally. Reflexes: Deep tendon reflexes 2+ equal and symmetric at the knees and ankles bilaterally, 3+ at the biceps, triceps, and brachioradialis bilaterally. There is positive ankle clonus on the right, no ankle clonus on the left. Rosen's sign is negative bilaterally. Gait: Gait, station, and transfers are independent and steady for short periods of time and over short distances. Psych Appearance: grossly normal Mental status: Yes mental status grossly normal Mood: congruent mood Affect: Yes normal affect Speech/Movement: Normal speech and movement present Attitude: Yes cooperative Thought Content: Normal thought content present Review of studies: MRI of the lumbar spine was personally reviewed by me. This demonstrates stable appearing construct from L4 to the sacrum. At L3-4 there is retrolisthesis and a large central disc herniation and spondylosis. There is lateral recess stenosis on the left at L2-3 which compresses the traversing L3 nerve root. Assessment and Plan Assessment and plan (1) Status post lumbar spinal fusion: Code(s): Z98.1 - Arthrodesis status Status: Acute (2) Lumbar disc herniation: Code(s): M51.26 - Other intervertebral disc displacement, lumbar region Status: Acute (3) Lumbar spondylosis: Code(s): M47.816 - Spondylosis without myelopathy or radiculopathy, lumbar region Status: Acute Plan Hoa is a 68-year-old female with back and leg pain related to junctional issues at L3-4 and at L2-3. I have recommended to her advancement of her fusion up to L3 by way of L3-4 posterior lumbar interbody fusion and a left-sided hemilaminectomy at L2-3 to deal with the lateral recess stenosis and compression on the traversing L3 nerve root. I described to her that operation, its risks, potential benefits, the operative and postoperative course in detail and answered all her questions personally. We discussed risks including but not limited to permanent neurologic deficit secondary to nerve root injury, need for reoperation secondary to infection, bleeding, CSF leak, adjacent level disease, recurrent residual pathology, instability, malposition migration of the hardware or nonunion, failure of the procedure to relieve her pain or symptoms, persistent pain, medical complications related anesthesia or surgery, etc.. She indicates understanding and elects to proceed with that operation.
[2024-07-17] MEDS: ceFAZolin 2 GM/D5W 50 ML 2 GM/50 ML BAG IVPB (07:48)
--- NOTE | 2024-07-17 07:50 | WPDHPUPDATE1 ---
History and Physical Update Update Date/Time: 07/17/24 07:50 History and Physical has been reviewed, including an updated exam of the patient. There are NO changes in the patient's condition. Risks, benefits, and alternatives have been discussed and questions answered. Patient agrees to proceed with procedure.
[2024-07-17] MEDS: LIDO 1%/EPINEPHRINE 1:100,000 50 ML VIAL 10 ML INFILTRATE (08:28)
--- NOTE | 2024-07-17 10:11 | W.PM.PROC2 ---
Procedure Note - Detailed Date of Procedure 07/17/24 Pre-op Diagnosis L3-4 herniated disc, left L2-3 lateral stenosis Post-op Diagnosis Same Procedure Performed L2-3 COMPLETE LAMINECTOMY AND BILATERAL FACETECTOMY, L3-4 COMPLETE DISKECTOMY AND INTERBODY ARTHRODESIS UTILIZING TITANIUM INTERBODY DEVICE AND LOCAL AUTOGRAFT, L3-4 PEDICLE SCREW INSTRUMENTATION WITH ATTACHMENT TO THE INSTRUMENTATION BELOW, LEFT L2-3 HEMILAMINECTOMY Surgeon Pankaj Dominguez MD Anesthesia General Description of Procedure The patient was brought to the operating room in the supine position, was sedated, intubated placed under general anesthesia in routine fashion. She was then turned into the prone position on a Rod frame. There operation on her back was examined, marked for incision, prepped and draped in routine sterile fashion. Incision was marked over the L2-3 5 spinous processes in the midline. This area was injected with 0.5% lidocaine with [id number] epinephrine. Intravenous antibiotics given prior to incision. Incision was made with a 10 blade scalpel down to the lumbodorsal fascia. A subperiosteal dissection of the muscle soft tissue away from spinous process and lamina at L2-3 for was performed with a subperiosteal elevator and Bovie cautery. A verifying x-rays obtained to verify the level of operation. The L3 spinous process was removed with a Jackelyn rongeur. Kerrison punches, curved curettes and Leksell rongeur were used to remove lamina in the midline at the soft contents of the canal were encountered. Midas-Randolph drill was used to resect the pars bilaterally. The inferior articular process and facet of L3 could then be removed bilaterally. These muscle spinous process were stripped free of soft tissue and morselized for later use as interbody autograft. Two small durotomy is were noted at this point. These were closed with 5 0 Nurolon vrffip-gj-giekf sutures. No more leaking was noted during the case. Kerrison punches and curved curettes were used to define a plane with the dura removed bone ligament flush with the pedicle and through the foramina widely decompressing the exiting nerve roots. With the thecal sac retracted and protected the disc space was entered bilaterally using an 11 blade scalpel. A 7 mm scraper, small curettes and a rasp were used to remove as much cartilaginous endplate and disc material as possible down to bleeding cortical flat surfaces on the opposing bones. The disc space was then sized an 8 mm interbody device was chosen and filled with local autograft bone. The disc space was likewise filled with local autograft bone. The interbody device was then placed 2-3 mm countersink within the disc space. This was done from the right side. Hemilaminectomy was performed on the left at L2-3. This was done with a Midas Randolph drill to remove jose lamina and medial facet. Kerrison punches and curved curettes were used to define a plane with the dura and removed bone and ligament overlying the dura on the left. In the lateral recess a curved curette was used to define a plane with the dura and additional bone ligament was removed. Contralaterally the spinous process was undercut using a Midas Randolph drill and then Kerrison punches and curved curettes were used to define a plane with the dura and removed additional bone and ligament. This was done until a Christ instrument could be placed in the lateral recess bilaterally to confirm lack of compression. Pedicle screw instrumentation was then performed at L 3 by observing palpating the pedicle a hole was made and superior to the process above the pedicle with a Midas Randolph drill. The pedicle was then cannulated with a pedicle probe, checked for continuity with the ball probe, tapped with a 5.5 mm tap and a 6.5 x 50 mm screw was placed each L3 pedicle. Lateral connectors were placed between the L4-L5 pedicle screws and attached using the appropriate caps. Lateral offsets were placed into the screw heads at L3. 60 mm rods were placed between the lateral connectors in the lateral offsets and secured in position using the appropriate caps. These were then all definitively tightened with torque and anti torque devices. The wound was then copiously irrigated with bacitracin irrigation all bleeding stopped with bipolar Bovie cautery and Gelfoam thrombin powder. DuraSeal was placed over the area where there had been some dural leaking dorsally. No leaking was noted after the stitches were put into the dura for the rest of the case. The wound was then closed in layered fashion with 2-0 Vicryl interrupted sutures in the lumbodorsal fascia and Virgil's layer. 3-0 Vicryl buried interrupted sutures were placed in the dermis and skin was closed with a running 4-0 Monocryl subcuticular stitch and dressed with Dermabond. The patient was allowed to wake up in the operating room was taken to the recovery room stable condition. There were no immediate complications of this operation. All counts were reported correct in the case. Blood loss was 150 cc. The patient was neurologically at her baseline postoperatively. CPT codes: 35501, 87318, 42695, 96651, 60606, 42073 Estimated Blood Loss 150 Drains No Complications Other complications (Inadvertent durotomy closed primarily no leaking noted after repair.) Condition Stable Disposition PACU [facility] Billing Surgery - Charge Forward: Surgery Billing
[2024-07-17] MEDS: fentaNYL CITRATE INJ (*CRX) 100 MCG/2 ML VIAL 25 MCG IV PUSH ×4 (10:51→11:07)
[2024-07-17] MEDS: ONDANSETRON INJ 4 MG/2 ML VIAL IV PUSH ×2 (11:38→23:04)
[2024-07-17] MEDS: diphenhydrAMINE HCl INJ 50 MG/ML VIAL 12.5 MG IV PUSH ×2 (11:49→12:11)
[2024-07-17] MEDS: KCL 20 MEQ/D5/0.45% SOD CHL 1,000 ML 100 ML IV CONT ×2 (12:38→22:15)
--- NOTE | 2024-07-17 12:43 | PC.NURSE ---
This patient, Hoa Barbosa, was admitted to Medical Room 340-01. Patient/family oriented to hospital policies and general routines including ID bracelet, bed and alarms, visiting hours, pain management, procedures, bathroom and other care routines, personal items, smoking policy, room service/diet, and visiting hours. Information on how to activate the Rapid Response Team has been discussed. Patient/Family are encouraged to report perceived risks to care and to ask questions if they do not understand what they are told or what they should do.
[2024-07-17] MEDS: HYDROcodone/acetaminophen (*CRX) 5-325 MG TABLET 1 TAB PO (12:48)
--- NOTE | 2024-07-17 15:52 | PC.NURSE ---
RN spoke with Dr. Dominguez via telephone in regards to the Cefazolin order as the label comments read give 3 times a day until drain is removed . Patient does not have a drain. Dr. Dominguez stated to discontinue the order as patient does not have a drain.
[2024-07-17] MEDS: HYDROcodone/acetaminophen (*CRX) 10-325 MG TABLET 1 TAB PO ×2 (16:17→22:15)
[2024-07-17] MEDS: DOCUSATE SODIUM 100 MG CAPSULE PO (22:16)
--- NOTE | ~2024-07-18 | XR_ITS ---
EXAMINATION: XR fluoroscopy no charge DATE: 07/17/2024 11:25 INDICATION: Lumbar interbody fusion TECHNIQUE: Single lateral fluoroscopic image of the lumbar spine was obtained during procedure perfor med by Dr. Dominguez. Radiologist was not present for the imaging or procedure. The amount of fluorosc opy time used during this procedure was 0.1 minutes. Total DAP was 0.373 Gycm^2 COMPARISON: None. FINDINGS: Images demonstrate soft tissue retractors projecting posterior to the lower lumbar spine we re there likely laminectomies. Multilevel instrumented anterior and posterior spinal fusion with inte rbody fusion devices at 2 adjacent levels and vertical jono and pedicle screw fixation. IMPRESSION: 1. Fluoroscopy utilized during lumbar interbody fusion. See procedure note for further detail. Reviewed, dictated and finalized at location B. OR TECHNICIAN
[2024-07-18 01:35] VITALS: BP 105/52; PULSE 74; RESP 18; TEMP 36.1; O2SAT 97
[2024-07-18 02:04] VITALS: RESP 18; O2SAT 97
[2024-07-18] MEDS: KCL 20 MEQ/D5/0.45% SOD CHL 1,000 ML 100 ML IV CONT (06:27)
[2024-07-18 06:36] VITALS: BP 103/46; PULSE 75; RESP 16; TEMP 36.1; O2SAT 93
[2024-07-18] MEDS: SODIUM CHLORIDE 0.9% IV 500 ML (06:41)
[2024-07-18 06:52] LABS: Basophils Percent Auto 0.3 % (0.2-1.2); Eosinophils Percent Auto 0.1 % (0-4.4); Hematocrit 33.4 % (37.0-47.0); Hemoglobin 10.7 g/dL (12.0-15.0); Immature Granulocyte Absolute 0.04 K/mm3 (0.00-0.031); Immature Granulocyte Percent A 0.4 % (0-0.5); Lymphocytes Absolute Auto 1.21 K/mm3 (0.9-3.2); Lymphocytes Percent Auto 12.1 % (18.3-44.2); Mean Corpuscular Hemoglobin 31.2 pg (26-34); Mean Corpuscular Volume 97.4 fl (80-100); Mean Platelet Volume 9.6 fl (7.4-10.4); Monocytes Percent Auto 9.9 % (2.6-8.5); Neutrophils Absolute Auto 7.7 K/mm3 (1.3-6.7); Neutrophils Percent Auto 77.2 % (45.5-73.1); Platelet Count Result 171 k/mm3 (150-375); Red Blood Count 3.43 M/mm3 (4.2-5.4); Red Cell Distribution Width 12.1 % (11.5-14.5)
--- NOTE | 2024-07-18 08:06 | PCPTNOTE ---
Patient refused treatment this session due to feeling dizzy and nauseous.
[2024-07-18] MEDS: ONDANSETRON INJ 4 MG/2 ML VIAL IV PUSH (08:16)
--- NOTE | 2024-07-18 10:34 | PCPTNOTE ---
Patient refused treatment this session. Patient reported she still feels nauseous and dizzy, per RN they gave patient something for nausea. Patient continues to refuse to attempt any activity.
[2024-07-18 11:28] VITALS: BP 107/51; PULSE 79; RESP 20; TEMP 35.9; O2SAT 91
--- NOTE | 2024-07-18 11:34 | PCOTNOTE ---
Attemtped to see patient for OT evaluation this AM. Patient declining any and all activity due to having a headache. Will continue to attempt.
[2024-07-18 14:36] VITALS: BP 109/49; PULSE 85; RESP 18; TEMP 36.1; O2SAT 96
[2024-07-18] MEDS: ACETAMINOPHEN 325 MG TABLET 650 MG PO (17:16)
--- OUTSIDE RECORDS SUMMARY | 2024-07-18 19:00 | XMS_ITS | Encounter Summary ---
Author Organization [facility] Healthcare Address [address] [place] [address] Care Team Providers Care Toucher Up Name Role Phone Nikolai Abrams MD Primary Care [facility] Encounter Details Date Type Department Care Team (Late st Contact Info) Description 07/01/2024 Results Follow-Up 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 BUNDLE WORKER documented in this encounter Plan of Treatment Not on file documented as of this encounter Visit Diagnoses Not on filedocumented in this encounter Care Teams Toucher Up Relationship Specialty Start Date End Date Nikolai Abrams MD [address] [address] PCP - General Family Practice 02/09/24 documented as of this encounter
--- OUTSIDE RECORDS SUMMARY | 2024-07-18 19:00 | XMS_ITS | Encounter Summary ---
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
--- OUTSIDE RECORDS SUMMARY | 2024-07-18 19:00 | XMS_ITS | Referral Summary ---
Author Organization [facility] A Address [address] [place] [address] Care Team Providers Care Air Support Control Officer Name Role Phone Nikolai Abrams MD Primary Care Provi [facility] Encounters Date Type Department Care Team Description 07/01/2024 Results Follow-Up [facility] Medical Group Primary Care at [address] [phone] Nikolai Abrams MD 2024 8:52 AM CAR REPAIRER HELPER - 2024 11:59 PM CAR REPAIRER HELPER Hospital Encounter [address] [address] Screening mammogram for breast cancer Discharge Disposition: Discharge to home or self care 04/25/2024 8:50 AM CAR REPAIRER HELPER - 04/25/2024 11:59 PM CAR REPAIRER HELPER Hospital Encounter [address] [address] Neck pain Discharge Disposition: Discharge to home or self care 04/24/2024 5:00 PM CAR REPAIRER HELPER Office Visit [facility] Medical Group Primary Care at [address] [place] [address] Nikolai Abrams MD Neck pain [...] 04/12/2023 Assessment & Plan (04/12/2023 5:32 PM CAR REPAIRER HELPER): We discussed a comprehensive list of medical conditions and proposed recommendations for each. We discussed the importance of increased exercise, fall prevention, proper nutrition, and suggested joining [facility] to accomplish most of these goals. Patient was given an age appropriate Medicare preventive services checklist. Please see the EMR regarding details of their health risk assessment and preventive services checklist. Will see her back in 1 year for wellness visit fasting lab sooner if needed Diverticulitis 02/02/2023 Assessment & Plan (07/11/2023 8:29 PM CAR REPAIRER HELPER): Cipro metronidazole liquid diet and advance slowly [...] 05/05/2021 Assessment & Plan (05/05/2021 5:16 PM CAR REPAIRER HELPER): Suspicious for diverticulitis. Hold call CT of [...] 06/17/2020 Assessment & Plan (06/17/2020 11:51 AM CAR REPAIRER HELPER): Referral to her hand specialist as requested. Mallet deformity of left middle finger 9 Assessment & Plan (11/08/2018 1:52 PM CDT): Nine weeks s/p mallet injury and 7 weeks status post splinting media strategist DIP is now at full extension She [...] (02/14/2018): Added automatically from request for surgery [id number] Generalized anxiety disorder 02/13/2018 Assessment & Plan [...] thereafter. Assessment & Plan (04/24/2018 4:31 AM CAR REPAIRER HELPER): Continue with Zoloft Assessment & Plan (04/21/2018 1:51 PM CAR REPAIRER HELPER): Well controlled on sertraline. Call back if [...] yearly. Colonoscopy due March 2028. Follow-up the immigration consultant as they direct. Will see her back in 1 year for physical fasting lab sooner if needed. Assessment & Plan (02/26/2021 1:23 PM CDT): Flu shot each February. Tetanus booster every 10 years. COVID vaccine completed. Mammogram yearly. Follow-up the immigration consultant for breast exam and pelvic exam as they direct. Colonoscopy due March 2028. Will see her back in 1 year for wellness visit fasting lab sooner if needed. Assessment & Plan (02/25/2020 1:38 PM CDT): Flu shot each February. Tetanus booster updated today. Shingrix completed. Colonoscopy due March 2028. Mammogram yearly. Follow-up the immigration consultant for breast exam and pelvic exam as [...] be ordered. Mammogram January 2019. Follow-up the immigration consultant for breast exam and pelvic exam as they direct. We will see her back in 2 months for follow-up of her anxiety sooner if needed. Assessment & Plan (02/10/2017 1:21 PM CDT): Flu shot each February. Tetanus booster every 10 years. Bone density scan every 2 years with her immigration consultant. Mammogram, breast exam, pelvic exam yearly with her immigration consultant. Achy legs probably result of her increased physical activity. No signs of vascular insufficiency today. Call back if no improvement. We will see her back in 1 year with fasting lab sooner if needed. B12 deficiency 12/28/2016 Assessment & Plan (04/12/2023 5:31 PM CAR REPAIRER HELPER): Continue supplementation check level yearly Assessment & [...] Hypothyroidism Assessment & Plan (07/11/2023 8:30 PM CAR REPAIRER HELPER): Continue current dose of levothyroxine check TSH and FT4 before next visit adjust dose based on results. Assessment & Plan (04/12/2023 5:31 PM CAR REPAIRER HELPER): Patient is asymptomatic on current dose of levothyroxine and TSH free T4 are normal and we will repeat levels before next visit. Assessment & Plan (03/01/2022 1:19 PM CDT): Increase levothyroxine to 75 mcg daily check TSH and FT4 in 8 weeks and call back for results. Assessment & Plan (05/05/2021 5:16 PM CAR REPAIRER HELPER): Continue current dose of levothyroxine and check [...] visit. Assessment & Plan (04/24/2018 4:28 AM CAR REPAIRER HELPER): Continue with Synthroid Assessment & Plan (02/13/2018 [...] Osteopenia 09/29/2013 Overview (03/01/2022): Formerly followed by pc maintenance technician, bmd 02/2019 mild osteopenia with low frax. Repeat due 04/2023 Assessment & Plan (04/12/2023 5:32 PM CAR REPAIRER HELPER): Calcium, vitamin-D, weight-bearing exercise repeat bone density [...] Calcium, vitamin-D, weight-bearing exercise and follow-up her immigration consultant for bone density scan as they direct. Assessment & Plan (02/10/2017 1:19 PM CDT): Calcium, vitamin-D, weight-bearing exercise. Repeat bone density scans every 2 years with her immigration consultant. Multiple-type hyperlipidemia 09/29/2013 Overview (08/20/2016): MIXED HYPERLIPIDEMIA Assessment & Plan (04/12/2023 5:31 PM CAR REPAIRER HELPER): Well controlled on current therapy and will check a lipid panel and LFTs in 12 months. Assessment & Plan (03/01/2022 1:19 PM CDT): Well controlled on current therapy and will check a lipid panel and LFTs in 12 months. Assessment & Plan (05/05/2021 5:16 PM CAR REPAIRER HELPER): Continue current dose of pravastatin check lipids [...] months. Assessment & Plan (04/24/2018 4:30 AM CAR REPAIRER HELPER): Patient is on statin. Start on aspirin [...] 024 Assessment & Plan (04/12/2023 5:31 PM CAR REPAIRER HELPER): Timed get up and go test normal. Chest pain 04/24/2018 02/22/2019 Assessment & Plan (04/24/2018 4:33 AM CAR REPAIRER HELPER): Precordial chest pain. Patient's symptoms resolved with [...] on file Legal Sex Female 8:54 AM CAR REPAIRER HELPER Gender Identity Not on file Sexual Orientation Not on file Last Filed Vital Signs Vital Sign Reading Time Taken Comments Blood Pressure 128/70 04/24/2024 4:57 PM CAR REPAIRER HELPER Pulse 78 04/24/2024 4:57 PM CAR REPAIRER HELPER Temperature 36.4 C (97.5 F) 04/24/2024 4:57 PM CAR REPAIRER HELPER Respiratory Rate 16 06/16/2023 3:44 PM CAR REPAIRER HELPER Oxygen Saturation 96% 04/24/2024 4:57 PM CAR REPAIRER HELPER Inhaled Oxygen Concentration - - Weight 76.2 kg (168 lb) 04/24/2024 4:57 PM CAR REPAIRER HELPER Height 162.6 cm (5' 4 ) 2024 8:58 AM CAR REPAIRER HELPER Body Mass Index 28.84 04/24/2024 4:57 PM CAR REPAIRER HELPER Plan of Treatment Not on file Procedures Procedure Name Priority Date/Time Associated Diagnosis Comments SCREENING MAMMOGRAM BILATERAL W HOMERO Schedule Routine, Read Routine (OP Routine) 2024 8:59 AM CAR REPAIRER HELPER Screening mammogram for breast cancer XR SPINE CERVICAL COMPLETE 4 OR 5 VW Schedule Routine, Read Routine (OP Routine) 04/25/2024 9:04 AM CAR REPAIRER HELPER Neck pain DEXA AXIAL SKELETON BONE DENSITY 1 OR MORE SITES Schedule Routine, Read Routine (OP Routine) 05/27/2023 9:52 AM CAR REPAIRER HELPER Other specified disorders of bone density and structure, multiple sites COLONOSCOPY 03/21/2018 10:45 AM CAR REPAIRER HELPER HEPATITIS C RNA, QUANTITATIVE, PCR Routine 01/27/2017 9:44 AM CDT Need for hepatitis C screening test from Last 3 Months or Most Recently Relevant to Health Maintenance Results * Screening Mammogram Bilateral W Homero (2024 8:59 AM CAR REPAIRER HELPER) Anatomical Region Laterality Modality Breast Bilateral Mammography 2024 10:0 7 AM CAR REPAIRER HELPER Impressions 2024 10:07 AM CAR REPAIRER HELPER There is no mammographic evidence of malignancy. A 1 year screening mammogram is recommended. BI-RADS: 1 - Negative. The patient has been or will be contacted. The patient will be entered into a reminder system with a target due date of 1 year for her next mammogram. Electronically signed by: Charito Floyd M.D. Narrative 2024 10:07 AM CAR REPAIRER HELPER EXAMINATION: SCREENING MAMMOGRAM BILATERAL W HOMERO ORDERING [...] 4 Or 5 Vw (04/25/2024 9:04 AM CAR REPAIRER HELPER) Anatomical Region Laterality Modality Spine N/A Computed Radiogr aphy 04/28/2024 6:43 PM CAR REPAIRER HELPER Narrative 04/28/2024 6:54 PM CAR REPAIRER HELPER EXAM DESCRIPTION: XR SPINE CERVICAL COMPLETE 4 [...] Varun Nielsen M.D. MF: LACEY Report ID: [id number] Reading Location: [place] [address] Procedure Note Varun Nielsen MD - 04/28/2024 [...] Varun Nielsen M.D. MF: LACEY Report ID: [id number] Reading Location: [place] [address] Nikolai Abrams MD IMG XR PROCEDURES F inal Result * Dexa Axial Skeleton Bone Density 1 or 2 Site (05/27/2023 9:52 AM CAR REPAIRER HELPER) Anatomical Region Laterality Modality Body N/A Other 05/27/2023 10:0 3 AM CAR REPAIRER HELPER Narrative 05/27/2023 10:04 AM CAR REPAIRER HELPER EXAM DESCRIPTION: DEXA AXIAL SKELETON BONE DENSITY 1 OR MORE SITES REASON FOR STUDY: 67 y/o year old F with given history of: Postmenopausal status. History of parent with hip fracture. Manager Creative/Model: [employer] (S/N [id number]) CLINICAL INFORMATION: Current height: 64 inches Maximum [...] Georgie Zapien M.D. TW: TW Report ID: [id number] Reading Location: [id number] Procedure Note Georgie Zapien MD - 05/27/2023 EXAM DESCRIPTION: DEXA AXIAL SKELETON BONE DENSITY 1 OR MORE SITES REASON FOR STUDY: 67 y/o year old F with given history of:Postmenopausal status. History of parent with hip fracture. Manager Creative/Model: [employer] (S/N [id number]) CLINICAL INFORMATION: Current height: 64 inches Maximum [...] Georgie Zapien M.D. TW: TW Report ID: [id number] Reading Location: [id number] us Patricia Watson MD IMG DXA PROCEDURES Final Res ult * COLONOSCOPY (03/21/2018 10:45 AM CAR REPAIRER HELPER) Anatomical Region Laterality Modality Other Narrative Procedure Note Mike Carvalho MD - 03/21/2018 10:45 AM CST [facility] Patient Name: Hoa Awan Procedure Date: 03/21/2018 10:45 AM Date of : 1955 Admit Type: Outpatient Age: 62 Gender: Female Attending MD: Mike Carvalho M.D. Room: [facility] ENDOSCOPY ROOM 1 Note Status: Finalized Procedure: [...] scope was passed under direct vision.The Colonoscope CF-[id number] was introducedthrough the anus and advanced to [...] malignant neoplasm of colon CPT copyright 2017 [employer]. All rights reserved. The codes documented in this report are preliminary and upon auto damage insurance appraiser reviewmay be revised to meet current compliance requirements. Recognized by the [employer] for promoting quality [...] of this assay have been determined by [facility]. The modifications have not been cleared or approved by the FDA. This assay has been validated pursuant to the CLIA regulations and is used for clinical purposes. This test was performed using the ROSALINE(R)AmpliPrep/ ROSALINE(R)TaqMan(R)HCV Test,v2.0. For more information on this test, go to: http://education.[employer] Language Express/faq/XMF98v4 (This link is being provided for informational/ educational purposes only.) Blood specimen (specimen) 01/27/2017 9:44 AM CDT 01/28/2017 4:56 AM CDT Narrative Resulting Agency Comment Performing Organization Information: Site ID: [id number] Name: [facility] Address: [address] [place] [address] [place] [id number] Director: Vamsi Zepeda D.O., MPH us Patricia Watson MD LAB MICROBIOLOGY - GENERAL O RDERABLES Final Result [facility] [place] from Last 3 Months or Most Recently Relevant to Health Maintenance [place] [employer]OSS MEDICARE SUPPLEMENT Advance Directives For more information, please contact: [phone] * Full Code (Latest Code Status on File) Date Activated Date Inactivated Comments 04/23/2018 7:03 PM 04/24/2018 5:31 PM * Full Code Date Activated Date Inactivated Comments 04/23/2018 7:03 PM 04/23/2018 7:03 PM * Full Code Date Activated Date Inactivated Comments 03/21/2018 10:23 AM 03/21/2018 3:48 PM * Full Code Date Activated Date Inactivated Comments 03/21/2018 10:22 AM 03/21/2018 10:23 AM Care Teams Air Support Control Officer Relationship Specialty Start Date End Date Nikolai Abrams MD [address] [facility] [address] [place] [address] PCP - General Family Practice 02/09/24
--- OUTSIDE RECORDS SUMMARY | 2024-07-18 19:00 | XMS_ITS | Clinical Summary ---
Author Organization [facility] Medical Office Building A Address [address] [place] [address] Care Team Providers Care Snow Groomer Name Role Phone Nikolai Abrams MD Primary [...] 04/12/2023 Assessment & Plan (04/12/2023 5:32 PM MACHINE SHORTHAND TEACHER): We discussed a comprehensive list of medical [...] 02/02/2023 Assessment & Plan (07/11/2023 8:29 PM MACHINE SHORTHAND TEACHER): Cipro metronidazole liquid diet and advance slowly [...] 05/05/2021 Assessment & Plan (05/05/2021 5:16 PM MACHINE SHORTHAND TEACHER): Suspicious for diverticulitis. Hold call CT of [...] 06/17/2020 Assessment & Plan (06/17/2020 11:51 AM MACHINE SHORTHAND TEACHER): Referral to her hand specialist as requested. Mallet deformity of left middle finger 9 Assessment & Plan (11/08/2018 1:52 PM CDT): Nine weeks s/p mallet injury and 7 weeks status post splinting manager multimedia DIP is now at full extension She [...] (02/14/2018): Added automatically from request for surgery [id number] Generalized anxiety disorder 02/13/2018 Assessment & Plan [...] thereafter. Assessment & Plan (04/24/2018 4:31 AM MACHINE SHORTHAND TEACHER): Continue with Zoloft Assessment & Plan (04/21/2018 1:51 PM MACHINE SHORTHAND TEACHER): Well controlled on sertraline. Call back if [...] yearly. Colonoscopy due March 2028. Follow-up the kettle fry cook operator as they direct. Will see her back in 1 year for physical fasting lab sooner if needed. Assessment & Plan (02/26/2021 1:23 PM CDT): Flu shot each February. Tetanus booster every 10 years. COVID vaccine completed. Mammogram yearly. Follow-up the kettle fry cook operator for breast exam and pelvic exam as they direct. Colonoscopy due March 2028. Will see her back in 1 year for wellness visit fasting lab sooner if needed. Assessment & Plan (02/25/2020 1:38 PM CDT): Flu shot each February. Tetanus booster updated today. Shingrix completed. Colonoscopy due March 2028. Mammogram yearly. Follow-up the kettle fry cook operator for breast exam and pelvic exam [...] be ordered. Mammogram January 2019. Follow-up the kettle fry cook operator for breast exam and pelvic exam as they direct. We will see her back in 2 months for follow-up of her anxiety sooner if needed. Assessment & Plan (02/10/2017 1:21 PM CDT): Flu shot each February. Tetanus booster every 10 years. Bone density scan every 2 years with her kettle fry cook operator. Mammogram, breast exam, pelvic exam yearly with her kettle fry cook operator. Achy legs probably result of her increased physical activity. No signs of vascular insufficiency today. Call back if no improvement. We will see her back in 1 year with fasting lab sooner if needed. B12 deficiency 12/28/2016 Assessment & Plan (04/12/2023 5:31 PM MACHINE SHORTHAND TEACHER): Continue supplementation check level yearly Assessment & [...] Hypothyroidism Assessment & Plan (07/11/2023 8:30 PM MACHINE SHORTHAND TEACHER): Continue current dose of levothyroxine check TSH and FT4 before next visit adjust dose based on results. Assessment & Plan (04/12/2023 5:31 PM MACHINE SHORTHAND TEACHER): Patient is asymptomatic on current dose of levothyroxine and TSH free T4 are normal and we will repeat levels before next visit. Assessment & Plan (03/01/2022 1:19 PM CDT): Increase levothyroxine to 75 mcg daily check TSH and FT4 in 8 weeks and call back for results. Assessment & Plan (05/05/2021 5:16 PM MACHINE SHORTHAND TEACHER): Continue current dose of levothyroxine and check [...] visit. Assessment & Plan (04/24/2018 4:28 AM MACHINE SHORTHAND TEACHER): Continue with Synthroid Assessment & Plan (02/13/2018 [...] Osteopenia 09/29/2013 Overview (03/01/2022): Formerly followed by bearing machine operator, bmd 02/2019 mild osteopenia with low frax. Repeat due 04/2023 Assessment & Plan (04/12/2023 5:32 PM MACHINE SHORTHAND TEACHER): Calcium, vitamin-D, weight-bearing exercise repeat bone density [...] Calcium, vitamin-D, weight-bearing exercise and follow-up her kettle fry cook operator for bone density scan as they direct. Assessment & Plan (02/10/2017 1:19 PM CDT): Calcium, vitamin-D, weight-bearing exercise. Repeat bone density scans every 2 years with her kettle fry cook operator. Multiple-type hyperlipidemia 09/29/2013 Overview (08/20/2016): MIXED HYPERLIPIDEMIA Assessment & Plan (04/12/2023 5:31 PM MACHINE SHORTHAND TEACHER): Well controlled on current therapy and will check a lipid panel and LFTs in 12 months. Assessment & Plan (03/01/2022 1:19 PM CDT): Well controlled on current therapy and will check a lipid panel and LFTs in 12 months. Assessment & Plan (05/05/2021 5:16 PM MACHINE SHORTHAND TEACHER): Continue current dose of pravastatin check lipids [...] months. Assessment & Plan (04/24/2018 4:30 AM MACHINE SHORTHAND TEACHER): Patient is on statin. Start on aspirin [...] 024 Assessment & Plan (04/12/2023 5:31 PM MACHINE SHORTHAND TEACHER): Timed get up and go test normal. Chest pain 04/24/2018 02/22/2019 Assessment & Plan (04/24/2018 4:33 AM MACHINE SHORTHAND TEACHER): Precordial chest pain. Patient's symptoms resolved with [...] Department Care Team Description 07/01/2024 Results Follow-Up [facility] Primary Care at [address] [address] Nikolai Abrams MD 2024 8:52 AM MACHINE SHORTHAND TEACHER - 2024 11:59 PM MACHINE SHORTHAND TEACHER Hospital Encounter [address] [address] Screening mammogram for breast cancer Discharge Disposition: Discharge to home or self care 04/25/2024 8:50 AM MACHINE SHORTHAND TEACHER - 04/25/2024 11:59 PM MACHINE SHORTHAND TEACHER Hospital Encounter [address] [address] Neck pain Discharge Disposition: Discharge to home or self care 04/24/2024 5:00 PM MACHINE SHORTHAND TEACHER Office Visit [facility] Primary Care at [address] [address] Nikolai Abrams MD Neck pain [...] herniated disc repair : Dr Dominguez - [facility] OTHER SURGICAL HISTORY right carpal tunnel surgery : Dr Dominguez - [facility] OTHER SURGICAL HISTORY Lumbar spine diskectomy 09/24: Dr Dominguez OTHER SURGICAL HISTORY 05/16/1992 - 05/15/1993 ELENA, one ovary left (2/2 endometriosis) OTHER SURGICAL HISTORY 05/16/2014 - 05/15/2015 gi bleed : [facility] OOPHORECTOMY FINGER TENDON REPAIR 12/12/2018 Left 3rd finger hammer repair CARPAL TUNNEL RELEASE 04/15/2019 - 05/15/2019 Left HYSTERECTOMY 05/16/1993 - 05/15/1994 Medical History Medical History Date Comments 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 Vertigo 2003 Vertigo Hx Other Medical HNP [...] on file Legal Sex Female 8:54 AM MACHINE SHORTHAND TEACHER Gender Identity Not on file Sexual Orientation Not on file Obstetrics History Para Term AB IAB SAB Ectopic Multiple Livin g Live Births 2 2 2 Date Outcome GA Total Labor Labor/2nd/3rd Weight Sex Type Anes PTL Chela A1 A5 Name Clin Term Term Last Filed Vital Signs Vital Sign Reading Time Taken Comments Blood Pressure 128/70 04/24/2024 4:57 PM MACHINE SHORTHAND TEACHER Pulse 78 04/24/2024 4:57 PM MACHINE SHORTHAND TEACHER Temperature 36.4 C (97.5 F) 04/24/2024 4:57 PM MACHINE SHORTHAND TEACHER Respiratory Rate 16 06/16/2023 3:44 PM MACHINE SHORTHAND TEACHER Oxygen Saturation 96% 04/24/2024 4:57 PM MACHINE SHORTHAND TEACHER Inhaled Oxygen Concentration - - Weight 76.2 kg (168 lb) 04/24/2024 4:57 PM MACHINE SHORTHAND TEACHER Height 162.6 cm (5' 4 ) 2024 8:58 AM MACHINE SHORTHAND TEACHER Body Mass Index 28.84 04/24/2024 4:57 PM MACHINE SHORTHAND TEACHER Plan of Treatment Health Maintenance Due Date [...] Read Routine (OP Routine) 2024 8:59 AM MACHINE SHORTHAND TEACHER Screening mammogram for breast cancer XR SPINE CERVICAL COMPLETE 4 OR 5 VW Schedule Routine, Read Routine (OP Routine) 04/25/2024 9:04 AM MACHINE SHORTHAND TEACHER Neck pain DEXA AXIAL SKELETON BONE DENSITY 1 OR MORE SITES Schedule Routine, Read Routine (OP Routine) 05/27/2023 9:52 AM MACHINE SHORTHAND TEACHER Other specified disorders of bone density and structure, multiple sites COLONOSCOPY 03/21/2018 10:45 AM MACHINE SHORTHAND TEACHER HEPATITIS C RNA, QUANTITATIVE, PCR Routine 01/27/2017 9:44 AM CDT Need for hepatitis C screening test from Last 3 Months or Most Recently Relevant to Health Maintenance Results * Screening Mammogram Bilateral W Homero (2024 8:59 AM MACHINE SHORTHAND TEACHER) Anatomical Region Laterality Modality Breast Bilateral Mammography 2024 10:0 7 AM MACHINE SHORTHAND TEACHER Impressions 2024 10:07 AM MACHINE SHORTHAND TEACHER There is no mammographic evidence of malignancy. A 1 year screening mammogram is recommended. BI-RADS: 1 - Negative. The patient has been or will be contacted. The patient will be entered into a reminder system with a target due date of 1 year for her next mammogram. Electronically signed by: Charito Floyd M.D. Narrative 2024 10:07 AM MACHINE SHORTHAND TEACHER EXAMINATION: SCREENING MAMMOGRAM BILATERAL W HOMERO ORDERING [...] 4 Or 5 Vw (04/25/2024 9:04 AM MACHINE SHORTHAND TEACHER) Anatomical Region Laterality Modality Spine N/A Computed Radiogr aphy 04/28/2024 6:43 PM MACHINE SHORTHAND TEACHER Narrative 04/28/2024 6:54 PM MACHINE SHORTHAND TEACHER EXAM DESCRIPTION: XR SPINE CERVICAL COMPLETE 4 [...] Varun Nielsen M.D. MF: LACEY Report ID: [id number] Reading Location: [place] [address] Procedure Note Varun Nielsen MD - 04/28/2024 [...] Varun Nielsen M.D. MF: LACEY Report ID: [id number] Reading Location: [place] [address] Nikolai Abrams MD IMG XR PROCEDURES F inal Result * Dexa Axial Skeleton Bone Density 1 or 2 Site (05/27/2023 9:52 AM MACHINE SHORTHAND TEACHER) Anatomical Region Laterality Modality Body N/A Other 05/27/2023 10:0 3 AM MACHINE SHORTHAND TEACHER Narrative 05/27/2023 10:04 AM MACHINE SHORTHAND TEACHER EXAM DESCRIPTION: DEXA AXIAL SKELETON BONE DENSITY 1 OR MORE SITES REASON FOR STUDY: 67 y/o year old F with given history of: Postmenopausal status. History of parent with hip fracture. Sausage Tier/Model: [employer] (S/N [id number]) CLINICAL INFORMATION: Current height: 64 inches Maximum [...] Georgie Zapien M.D. TW: TW Report ID: [id number] Reading Location: [id number] Procedure Note Georgie Zapien MD - 05/27/2023 EXAM DESCRIPTION: DEXA AXIAL SKELETON BONE DENSITY 1 OR MORE SITES REASON FOR STUDY: 67 y/o year old F with given history of:Postmenopausal status. History of parent with hip fracture. Sausage Tier/Model: [employer] (S/N [id number]) CLINICAL INFORMATION: Current height: 64 inches Maximum [...] Georgie Zapien M.D. TW: TW Report ID: [id number] Reading Location: [id number] Patricia Watson MD IMG DXA PROCEDURES Final Res ult * COLONOSCOPY (03/21/2018 10:45 AM MACHINE SHORTHAND TEACHER) Anatomical Region Laterality Modality Other Narrative Procedure Note Mike Carvalho MD - 03/21/2018 10:45 AM CST [facility] Patient Name: Hoa Barbosa Procedure Date: 03/21/2018 10:45 AM Date of : 1955 Admit Type: Outpatient Age: 62 Gender: Female Attending MD: Mike Carvalho M.D. Room: [facility] ENDOSCOPY ROOM 1 Note Status: Finalized Procedure: [...] scope was passed under direct vision.The Colonoscope [id number] was introducedthrough the anus and advanced to [...] malignant neoplasm of colon CPT copyright 2017 [employer]. All rights reserved. The codes documented in this report are preliminary and upon medical transcriber reviewmay be revised to meet current compliance requirements. Recognized by the [employer] for promoting quality in endoscopy us Mike Carvalho MD ENDOSCOPY PROCEDURES Final Re sult * Hepatitis C RNA, quantitative, PCR (01/27/2017 9:44 AM CDT) HCV RNA IU/mL <15 NOT DETECTED <15 IU/mL [facility] - OR HCV RNA log IU/mL <1.18 NOT DETECTED <1.18 Log IU/mL [facility] - OR (Always Message) [facility] - [place] Comment: The analytical performance characteristics of this assay have been determined by [facility]. The modifications have not been cleared or approved by the FDA. This assay has been validated pursuant to the CLIA regulations and is used for clinical purposes. This test was performed using the ROSALINE(R)AmpliPrep/ ROSALINE(R)TaqMan(R)HCV Test,v2.0. For more information on this test, go to: http://education.[employer]/faq/DNL08s1 (This link is being provided for informational/ educational purposes only.) Blood specimen (specimen) 01/27/2017 9:44 AM CDT 01/28/2017 4:56 AM CDT Narrative Resulting Agency Comment Performing Organization Information: Site ID: [place] Name: [facility] Address: [address] [place] [address] Director: Vamsi Zepeda D.O., MPH us Patricia Watson MD LAB MICROBIOLOGY - GENERAL O RDERABLES Final Result [facility] [place] [facility] Cabrera from Last 3 Months or Most Recently Relevant to Health Maintenance Insurance [place] MEDICARE [facility] MEDICARE SUPPLEMENT Advance Directives For more information, please contact: [phone] * Full Code (Latest Code Status on File) Date Activated Date Inactivated Comments 04/23/2018 7:03 PM 04/24/2018 5:31 PM * Full Code Date Activated Date Inactivated Comments 04/23/2018 7:03 PM 04/23/2018 7:03 PM * Full Code Date Activated Date Inactivated Comments 03/21/2018 10:23 AM 03/21/2018 3:48 PM * Full Code Date Activated Date Inactivated Comments 03/21/2018 10:22 AM 03/21/2018 10:23 AM Care Teams Snow Groomer Relationship Specialty Start Date End Date Nikolai Abrams MD [address] [facility] [address] [place] [address] PCP - General Family Practice 02/09/24
[2024-07-18 19:25] VITALS: BP 117/52; PULSE 76; RESP 18; TEMP 36.6; O2SAT 98
--- NOTE | 2024-07-21 08:32 | WPDNEUROSGPN ---
Progress Note: A&P Assessment and Plan (1) Status post lumbar spinal fusion: Code(s): Z98.1 - Arthrodesis status Status: Acute Assessment and Plan: And is doing well and her pain is well-controlled. We will allow her to be discharged to home. We gave her discharge instructions. Subjective Date/time seen: 07/18/24 19:33 Interval history: Hoa is postop day 1 status post L3-4 PLIF and L2-3 hemilaminectomy. She is doing quite well. She is transferring independently. She is walking well. She has no issues in her lower extremities. She has not having any new bowel or bladder issues. Exam Narrative: Strength is normal in the bilateral lower extremities Sensation is intact to light touch in the lower extremities Her wound is clean, dry and intact. Objective Data Intake/Output Intake/Output: Intake & Output 07/18/24 07/19/24 07/20/24 07/21/24 23:59 23:59 23:59 23:59 Intake Total 2240 Output Total 2900 Balance -660 Meds/Results Radiology Results: ITS Impressions Fluoroscopy 07/17/24 12:00 IMPRESSION: 1. Fluoroscopy utilized during lumbar interbody fusion. See procedure note for further detail.
--- NOTE | 2024-08-14 12:32 | P.DS_ITS ---
DS: Admitting Diagnosis Discharge Date 07/18/24 Admitting Diagnosis lumbar lateral recess stenosis and L3-4 herniated nucleus pulposus status post lumbar fusion DS: Discharge Diagnosis Discharge Diagnosis (1) Lumbar disc herniation: Code(s): M51.26 - Other intervertebral disc displacement, lumbar region Status: Acute (2) Status post lumbar spinal fusion: Code(s): Z98.1 - Arthrodesis status Status: Acute (3) Lumbar spondylosis: Code(s): M47.816 - Spondylosis without myelopathy or radiculopathy, lumbar region Status: Acute DS: Summary Hospital Course Hospital Course: the patient was taken the operating room on with the aforementioned L3-4 posterior lumbar interbody fusion and left L2-3 hemilaminectomy was performed without complication. The patient went to the floor postoperatively. Physical occupational therapy were involved in her care. On the day after her operation she was eating, ambulating, emptying her bladder her pain was under control with by mouth pain medicine. Her drain and Mathew catheter had been removed. Her wound remained clean, dry and intact. She was afebrile stable vital signs. She was therefore allowed to be discharged home. Status at Discharge Functional status at discharge: independent ambulation Time Spent with Patient Time attestation: Total time spent providing and/or coordinating discharge services: Discharge Plan Discharge Attending physician on discharge: Pankaj Dominguez Discharging Clinician: Pankaj Dominguez Anticipated Discharge Date/Time: 07/18/24 20:32 Patient Disposition: Home, Self-Care Activity: may shower Diet: as tolerated Wound Care Instructions: follow printed instructions Discharge Instructions: INSTRUCTIONS AFTER YOUR LUMBAR LAMINECTOMY/DECOMPRESSI ON/FORAMINOTOMY/DISCECTOMY * Incisions may be closed with either: * Steri-strips (let them wear off on their own). * Surgical glue (let it peel off on its own). * Sutures or alverto (call the office for an appointment to have these removed). * Keep the incision dry for the first three days after surgery. Never apply ointments or lotions to the incision. * The incision should be checked daily. Notify the office if there is drainage, redness, or if you have fever with a temperature of over 100 degrees. * After the third postop day, it is okay to shower. Let soap and water run over your incision. No soaking in a tub, hot tub, or pool for at least one month. * You are encouraged to walk as much as comfortable, with assistance as needed. For example, it may be beneficial to walk short distances hourly during the waking hours and gradually increase walking during your recovery period. Fatigue can be common. * Avoid any bending, heavy lifting, twisting movements. * You have an soegs-wp-gmp-pound lift restriction until further advised by your physician (A gallon of milk weighs eight pounds). * Make frequent position changes, avoiding long periods of sitting. Try not to sit more than 30 minutes at a time. * You may engage in sexual activity in two weeks as tolerated. * No housework, especially vacuuming, making beds, or doing laundry until seen in the office. * You may walk stairs carefully. * Minimize car rides for two weeks. Driving can usually be resumed within two weeks; however, you may not drive at that time if still taking pain medications. * Once you are discharged from the hospital, please call the office to set up your postop appointment. * The physician may order pain medication and/or muscle relaxers. As time goes by, you should require less of these. Always take your medication as ordered, and only if needed. If you take more than prescribed, it will not be refilled early. If you feel you require narcotic medication refill, kindly give the office a 72-hour notice. No refills are given over the weekend. * Anti-inflammatory meds (like Ibuprofen, Aleve, Advil, Motrin) may be used if approved by your surgeon. Over the counter Tylenol products may be used but use caution mixing Tylenol with your pain medication. The common pain pills include Acetaminophen as an ingredient, you could cause liver damage if taking too much. Tylenol and Acetaminophen are the same drug. * Resume your usual diet. Constipation is a common problem postop, especially when taking narcotic pain medications. You may use any over the counter laxative, or stool softener, following the bottle directions. * Use of nicotine products should be stopped completely. Smoking can slow the healing process significantly. It can also increase the chance for developing postop pneumonias and other complications. Please avoid use of all nicotine products for the health of your spine. * FOR AN EMERGENCY AFTER HOURS OR ON A WEEKEND, PLEASE CALL THE MEDICAL EXCHANGE AT * Call the office for: * Appointment set up. * Fever greater than 101 degrees. * Increased pain, swelling, redness or drainage from your incision. * Trouble swallowing or breathing. * Pain, swelling or weakness of your legs. * Any other question or concerns you may have. Patient Instructions: Antibiotic Form Patient Language: Hungarian Stand Alone Forms: General Discharge Information Follow-up/Referrals: Pankaj Dominguez MD [Physician] - Discharge Medications: New hydrocodone-acetaminophen 5-325 mg tablet 1 - 2 tablet PO Q4H PRN (Reason: pain) Qty: 40 0RF Continued pravastatin 20 mg tablet 20 mg PO HS levothyroxine 75 mcg tablet 88 mcg PO DAILY mecobalamin (vitamin B12) 500 mcg tablet,chewable 500 mcg PO DAILY multivitamin Tablet 1 tablet PO DAILY Zyrtec 10 mg capsule 10 mg PO DAILY Date of admission: 07/18/24 18:47 Primary Care Provider: Jose Alberto,Nikolai Ballard MD Admitting Provider: Pankaj Dominguez Attending physician on admission: Pankaj Dominguez Condition: Improved
== END 2024-07-18 20:59 | disposition home or self-care (01) ==
LOC: ANHSURGERY 18:56 → ANH3MED 18:58
PROVIDERS: Admitting Provider Neurological Surgery; Visit Provider Neurological Surgery
PROC: (CPT 22612; principal; 2024-07-17 07:30)
DX: M51.26 Other intervertebral disc displacement, lumbar region (principal); M47.816 Spondylosis without myelopathy or radiculopathy, lumbar region; M48.061 Spinal stenosis, lumbar region without neurogenic claudication; G97.41 Accidental puncture or laceration of dura during a procedure; Y84.8 Other medical procedures as the cause of abnormal reaction of the patient, or of later complication, without mention of misadventure at the time of the procedure; Z98.1 Arthrodesis status; E07.9 Disorder of thyroid, unspecified; E78.5 Hyperlipidemia, unspecified; Z79.899 Other long term (current) drug therapy
CPT/HCPCS: 22630; 63052; 22840; 22853; 20936; 36415; 85025; 86850; 86900; 86901; 97161; 97165; 97530; 99199; A9270; C1713; G0378; J0690; J1100; J1200; J2003; J2004; J2250; J2371; J2405; J2704; J3010; J3480; J7040; J7120

== ENCOUNTER 2024-08-21 10:08 | Outpatient (CLI) | payer MEDICARE, SELFPAY ==
--- NOTE | ~2024-08-21 | XR_ITS ---
Lumbosacral Spine: AP and lateral views Clinical History: Arthrodesis Findings: The normal lordotic curve is maintained. The vertebral bodies and posterior elements are i ntact. The intervertebral disc spaces are preserved. Status post posterior fusion from L3 through S1 , bilateral rods and transpedicular screws present. There is interval vertebral disc fusion devices a t the L3-L4 and L4-L5 disc spaces. There is advanced degenerative disc narrowing at L5-S1. There is a dvanced degenerative tearing at L1-L2. The sacroiliac joints are normally outlined. Impression: Posterior fusion changes from L3 through S1, as above. Degenerative spondylitic changes, as above. Reviewed, dictated and finalized at location M. Impression: Posterior fusion changes from L3 through S1, as above. Degenerative spondylitic changes, as above.
--- OUTSIDE RECORDS SUMMARY | 2024-08-21 11:27 | XMS_ITS | Encounter Summary ---
Author Organization [facility] Healthcare Address [address] [place] [address] Care Team Providers Care Apprentice Cosmetologist Name Role Phone iNkolai Abrams MD Primary Care Provi [facility] Encounter Details Date Type Department Care Team (Late st Contact Info) Description 07/01/2024 Results Follow-Up [facility] Primary Care at [place] [address] [place] [address] [address] [place] [address] Nikolai Abrams MD [address] [facility] [address] [place] [address] Social History Tobacco Use Types [...] on file Legal Sex Female 8:54 AM LITHOGRAPHIC RETOUCHER APPRENTICE Gender Identity Not on file Sexual Orientation Not on file documented as of this encounter Miscellaneous Notes * Result Encounter Note - Belinda Casas MA - 07/02/2024 11:03 AM LITHOGRAPHIC RETOUCHER APPRENTICE Normal mammogram message sent thru [employer]. OGRAPHIC RETOUCHER APPRENTICE documented in this encounter Plan of Treatment Not on file documented as of this encounter Visit Diagnoses Not on filedocumented in this encounter Care Teams Apprentice Cosmetologist Relationship Specialty Start Date End Date Nikolai Abrams MD [address] [address] PCP - General Family Practice 02/09/24 documented as of this encounter
--- OUTSIDE RECORDS SUMMARY | 2024-08-21 11:27 | XMS_ITS | Encounter Summary ---
Author Organization [facility] Healthcare Address [address] [place] [address] Care Team Providers Care Dental Technician Instructor Name Role Phone Morgan Watson MD Primary Care Provider [phone] Nikolai Abrams MD Primary Care Provi [facility] Encounter Details Date Type Department Care Team (Late st Contact Info) Description 04/22/2021 Telephone [facility] [address] [place] [address] Kay Perez, RT Social History Tobacco Use [...] on file Legal Sex Female 8:54 AM SENIOR MEDICAL BILLING SPECIALIST Gender Identity Not on file Sexual Orientation Not on file documented as of this encounter Plan of Treatment Not on file documented as of this encounter Visit Diagnoses Not on filedocumented in this encounter Care Teams Dental Technician Instructor Relationship Specialty Start Date End Date Morgan Watson MD PCP - General 07/19/13 02/08/24 Nikolai Abrams MD [address] [facility] [address] [place] [address] PCP - General Family Practice 02/09/24 documented as of this encounter
--- OUTSIDE RECORDS SUMMARY | 2024-08-21 11:27 | XMS_ITS | Referral Summary ---
Author Organization [facility] Medical Office Building A Address [address] [place] [address] Care Team Providers Care Balloon Seller Name Role Phone Nikolai Abrams MD Primary Care [facility] Encounters Date Type Department Care Team Description 08/13/2024 10:00 AM CDT Office Visit [facility] Primary Care at [address] [phone] Nikolai Abrams MD Encounter for Medicare annual wellness exam (Primary Dx); Multiple-type hyperlipidemia; Acquired hypothyroidism; B12 deficiency 08/12/2024 Results Follow-Up [facility] Primary Care at [address] [place] [phone] Nikolai Abrams MD 08/10/2024 11:58 AM CDT - 08/10/2024 11:59 PM [place] [address] Hypothyroidism, unspecified type Discharge Disposition: Discharge to home or self care 08/10/2024 9:15 AM CDT Lab [facility] Outpatient Lab at [address] [place] [phone] 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 Telephone [facility] Medical [facility] Primary Care at [address] [place] [address] Nikolai Abrams MD Medical Question/Miscellane ous 07/01/2024 Results Follow-Up [facility] Primary Care at [address] [place] [address] Nikolai Abrams MD 2024 8:52 AM CAR DRIVER - 2024 11:59 PM CAR DRIVER Hospital Encounter [facility] [address] [place] [address] Screening mammogram for breast cancer Discharge Disposition: Discharge to home or self care from Last 3 Months Allergies Active Allergy Reactions Criticality Noted Date Comments Codeine Vomiting Low Medications cyanocobalamin (vitamin B-12) 500 mcg tablet 1 po q day 0 0 01/27/20 13 Active levothyroxine (SYNTHROID) 88 mcg tabletIndicatio ns:Hypothyroidi sm, unspecified type TAKE 1 TABLET(88 MCG) BY MOUTH DAILY 90 tablet 3 08/07/19 25 Active pravastatin (PRAVACHOL) 20 mg tablet Take 1 tablet (20 mg total) by mouth daily 90 tablet 1 08/14/19 25 Active pravastatin (PRAVACHOL) 20 mg tablet TAKE 1 TABLET(20 MG) BY MOUTH DAILY 90 tablet 3 09/08/19 24 025 Discontinued(Re order) levothyroxine (SYNTHROID) 88 mcg tabletIndicatio ns:Hypothyroidi sm, unspecified type Take 1 tablet (88 mcg total) by mouth daily 30 tablet 5 02/13/20 24 025 Discontinued Active Problems Problem Noted Date Diagnosed Date Encounter for Medicare annual wellness exam 07/16 Neck pain 04/24/2024 Achilles tendinitis of left lower extremity 04/15 Diverticulosis 02/09/2024 Lumbar radiculopathy 08/14/2021 Assessment & Plan (08/14/2021 3:17 PM CDT): Medrol Dosepak and tizanidine for muscle spasms and help her sleep. Do not use this while driving. Hold Aleve until Medrol Dosepak completed. X-rays of her lumbar spine and Physical therapy evaluation. Call back if no improvement for MRI and referral to . Fatigue 08/26/2020 Assessment & Plan (08/26/2020 10:46 [...] Assessment & Plan (06/17/2020 11:51 AM CAR DRIVER): Referral to her hand specialist as requested. 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 Call back if [...] yearly. Colonoscopy due March 2028. Follow-up the underwriting operations manager as they direct. Will see her back in 1 year for physical fasting lab sooner if needed. Assessment & Plan (02/26/2021 1:23 PM CDT): Flu shot each February. Tetanus booster every 10 years. COVID vaccine completed. Mammogram yearly. Follow-up the underwriting operations manager for breast exam and pelvic exam as they direct. Colonoscopy due March 2028. Will see her back in 1 year for wellness visit fasting lab sooner if needed. Assessment & Plan (02/25/2020 1:38 PM CDT): Flu shot each February. Tetanus booster updated today. Shingrix completed. Colonoscopy due March 2028. Mammogram yearly. Follow-up the underwriting operations manager for breast exam and pelvic [...] be ordered. Mammogram January 2019. Follow-up the underwriting operations manager for breast exam and pelvic exam as they direct. We will see her back in 2 months for follow-up of her anxiety sooner if needed. Assessment & Plan (02/10/2017 1:21 PM CDT): Flu shot each February. Tetanus booster every 10 years. Bone density scan every 2 years with her underwriting operations manager. Mammogram, breast exam, pelvic exam yearly with her underwriting operations manager. Achy legs probably result of her increased physical activity. No signs of vascular insufficiency today. Call back if no improvement. We will see her back in 1 year with fasting lab sooner if needed. B12 deficiency 12/28/2016 Assessment & Plan (04/12/2023 5:31 PM CAR DRIVER): Continue supplementation check level yearly Assessment & [...] Assessment & Plan (07/11/2023 8:30 PM CAR DRIVER): Continue current dose of levothyroxine check TSH and FT4 before next visit adjust dose based on results. Assessment & Plan (04/12/2023 5:31 PM CAR DRIVER): Patient is asymptomatic on current dose of levothyroxine and TSH free T4 are normal and we will repeat levels before next visit. Assessment & Plan (03/01/2022 1:19 PM CDT): Increase levothyroxine to 75 mcg daily check TSH and FT4 in 8 weeks and call back for results. 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 Repeat due 04/2023 Assessment & Plan (04/12/2023 5:32 PM CAR DRIVER): Calcium, vitamin-D, weight-bearing exercise repeat bone density [...] Calcium, vitamin-D, weight-bearing exercise and follow-up her underwriting operations manager for bone density scan as they direct. Assessment & Plan (02/10/2017 1:19 PM CDT): Calcium, vitamin-D, weight-bearing exercise. Repeat bone density scans every 2 years with her underwriting operations manager. Multiple-type hyperlipidemia 09/29/2013 Overview (08/20/2016): MIXED HYPERLIPIDEMIA Assessment & Plan (04/12/2023 5:31 PM CAR DRIVER): Well controlled on current therapy and will check a lipid panel and LFTs in 12 months. Assessment & Plan (03/01/2022 1:19 PM CDT): Well controlled on current therapy and will check a lipid panel and LFTs in 12 months. Assessment & Plan (05/05/2021 5:16 PM CAR DRIVER): Continue current dose of pravastatin check lipids [...] Assessment & Plan (04/24/2018 4:30 AM CAR DRIVER): Patient is on statin. Start on aspirin [...] Problem Noted Date Diagnosed Date Resolved Date Welcome to Medicare preventive visit 04/12/2023 08/13/2024 Assessment & Plan (04/12/2023 5:32 PM CAR DRIVER): We discussed a comprehensive list of medical conditions and proposed recommendations for each. We discussed the importance of increased exercise, fall prevention, proper nutrition, and suggested joining [facility] to accomplish most of these goals. Patient was given an age appropriate Medicare preventive services checklist. Please see the EMR regarding details of their health risk assessment and preventive services checklist. Will see her back in 1 year for wellness visit fasting lab sooner if needed At low risk for fall 04/12/2023 Assessment & Plan (04/12/2023 5:31 PM CAR DRIVER): Timed get up and go test normal. Diverticulitis 02/02/2023 08/13/2024 Assessment & Plan (07/11/2023 8:29 PM CAR DRIVER): Cipro metronidazole liquid diet and advance slowly over the next few days as pain improves. ER if develops worsening pain fevers chills. Assessment & Plan (02/02/2023 11:40 AM CDT): Clinically much improved on her antibiotic therapy which she should complete. She is to call back if she has any return of pain or fevers or chills. Repeat CBC before next visit. Lower abdominal pain 05/05/2021 025 Assessment & Plan (05/05/2021 5:16 PM CAR DRIVER): Suspicious for diverticulitis. Hold call CT of her abdomen pelvis and call back for results. CBC CMP amylase lipase and UA with micro and culture. Start Cipro and Flagyl. Warned of side effects advised not to drink alcohol with this. Call back if she does not have complete resolution of pain. Chest pain 04/24/2018 02/22/2019 Assessment & Plan (04/24/2018 4:33 AM CAR DRIVER): Precordial chest pain. Patient's symptoms resolved with [...] Date Smoking Tobacco: Never Smokeless Tobacco: Never Tobacco Cessation:Counseling Given: Not Answered Alcohol Use Standard Drinks/Week Comments No 0 [...] points, staff should administer the PHQ-9) 0 08/07/2024 Personal Safety Answer Date Recorded Have you ever been in or are you currently in a harmful physical or emotional relationship or is someone making you feel afraid or unsafe? Denies 01/28/2023 Comments No Sex and Gender Information Value Date Recorded Sex Assigned at Not on file Legal Sex Female 8:54 AM CAR DRIVER Gender Identity Not on file Sexual Orientation Not on file Last Filed Vital Signs Vital Sign Reading Time Taken Comments Blood Pressure 118/74 08/13/2024 9:59 AM CDT Pulse 93 08/13/2024 9:59 AM CDT Temperature 36 C (96.8 F) 08/13/2024 9:59 AM CDT Respiratory Rate 16 06/16/2023 3:44 PM CAR DRIVER Oxygen Saturation 96% 08/13/2024 9:59 AM CDT Inhaled Oxygen Concentration - - Weight 75.6 kg (166 lb 9.6 oz) 08/13/2024 9:59 A M CDT Height 162.6 cm (5' 4 ) 08/13/2024 9:59 AM CDT Body Mass Index 28.6 08/13/2024 9:59 AM CDT Plan of Treatment Not on file Procedures Procedure Name Priority Date/Time Associated Diagnosis Comments TSH Routine 08/10/2024 11:56 AM CDT Hypothyroidism, unspecified type SCREENING MAMMOGRAM BILATERAL W HOMERO Schedule Routine, Read Routine (OP Routine) 2024 8:59 AM CAR DRIVER Screening mammogram for breast cancer DEXA AXIAL SKELETON BONE DENSITY 1 OR MORE SITES Schedule Routine, Read Routine (OP Routine) 05/27/2023 9:52 AM CAR DRIVER Other specified disorders of bone density and structure, multiple sites COLONOSCOPY 03/21/2018 10:45 AM CAR DRIVER HEPATITIS C RNA, QUANTITATIVE, PCR Routine 01/27/2017 9:44 AM CDT Need for hepatitis C screening test from Last 3 Months or Most Recently Relevant to Health Maintenance Results * TSH (08/10/2024 11:56 AM CDT) Thyroid Stimulating Hormone 1.77 0.30 - 4.20 mcIUnit/mL Blood 08/10/2024 11:5 6 AM CDT 08/10/2024 2:23 PM CDT us Nikolai Abrams MD LAB BLOOD ORDERABLE S Final Result ILIR [id number] [address] Department [place] [email or web address] [place] [address] * Screening Mammogram Bilateral W Homero (2024 8:59 AM CAR DRIVER) Anatomical Region Laterality Modality Breast Bilateral Mammography 2024 10:0 7 AM CAR DRIVER Impressions 2024 10:07 AM CAR DRIVER There is no mammographic evidence of malignancy. A 1 year screening mammogram is recommended. BI-RADS: 1 - Negative. The patient has been or will be contacted. The patient will be entered into a reminder system with a target due date of 1 year for her next mammogram. Electronically signed by: Charito Floyd M.D. Narrative 2024 10:07 AM CAR DRIVER EXAMINATION: SCREENING MAMMOGRAM BILATERAL W HOMERO ORDERING [...] been no suspicious interval change. us Patricia Watsno MD IMG MAMMO PROCEDURES Final R esult * Dexa Axial Skeleton Bone Density 1 or 2 Site (05/27/2023 9:52 AM CAR DRIVER) Anatomical Region Laterality Modality Body N/A Other 05/27/2023 10:0 3 AM CAR DRIVER Narrative 05/27/2023 10:04 AM CAR DRIVER EXAM DESCRIPTION: DEXA AXIAL SKELETON BONE DENSITY 1 OR MORE SITES REASON FOR STUDY: 67 y/o year old F with given history of: Postmenopausal status. History of parent with hip fracture. Photogrammetric Stereo Compiler/Model: NearbyNow SL (S/N [id number]) CLINICAL INFORMATION: Current height: 64 inches Maximum [...] Electronically signed by Georgie Zapien M.D. TW: MARYSE Report ID: [id number] Reading Location: [id number] Procedure Note Georgie Zapien MD - 05/27/2023 EXAM DESCRIPTION: DEXA AXIAL SKELETON BONE DENSITY 1 OR MORE SITES REASON FOR STUDY: 67 y/o year old F with given history of:Postmenopausal status. History of parent with hip fracture. Photogrammetric Stereo Compiler/Model: App[employer]ire (S/N [id number]) CLINICAL INFORMATION: Current height: 64 inches Maximum [...] Electronically signed by Georgie Zapien M.D. TW: MARYSE Report ID: [id number] Reading Location: [id number] us Patricia Watson MD IMG DXA PROCEDURES Final Res ult * COLONOSCOPY (03/21/2018 10:45 AM CAR DRIVER) Anatomical Region Laterality Modality Other Narrative Procedure Note Mike Carvalho MD - 03/21/2018 10:45 AM CST [facility] Patient Name: Hoa Awan Procedure Date: [...] scope was passed under direct vision.The Colonoscope [id number] was introducedthrough the anus and advanced to [...] malignant neoplasm of colon CPT copyright 2017 [employer]. All rights reserved. The codes documented in this report are preliminary and upon ict project manager reviewmay be revised to meet current compliance requirements. Recognized by the [employer] for promoting quality in endoscopy Mike Carvalho MD ENDOSCOPY PROCEDURES Final Re sult * Hepatitis C RNA, quantitative, PCR (01/27/2017 9:44 AM CDT) HCV RNA IU/mL <15 NOT DETECTED <15 IU/mL [facility] [place] HCV RNA log IU/mL <1.18 NOT DETECTED <1.18 Log IU/mL [facility] [place] (Always Message) [facility] [place] Comment: The analytical performance characteristics of this assay have been determined by [facility]. The modifications have not been cleared or approved by the FDA. This assay has been validated pursuant to the CLIA regulations and is used for clinical purposes. This test was performed using the ROSALINE(R)AmpliPrep/ ROSALINE(R)TaqMan(R)HCV Test,v2.0. For more information on this test, go to: http://education.[employer]/faq/NBF77b4 (This link is being provided for informational/ educational purposes only.) Blood specimen (specimen) 01/27/2017 9:44 AM CDT 01/28/2017 4:56 AM CDT Narrative Resulting Agency Comment Performing Organization Information: Site ID: [id number] Name: [facility] Address: [address] [facility] [place] [address] Director: Vamsi Zepeda D.O., MPH us Patricia Watson MD LAB MICROBIOLOGY - GENERAL O RDERABLES Final Result [facility] from Last 3 Months or Most Recently Relevant to Health Maintenance [place] MED[place]ARE [facility] MEDICARE SUPPLEMENT Advance Directives For more information, please contact: [phone] * Full Code (Latest Code Status on File) Date Activated Date Inactivated Comments 04/23/2018 7:03 PM 04/24/2018 5:31 PM * Full Code Date Activated Date Inactivated Comments 04/23/2018 7:03 PM 04/23/2018 7:03 PM * Full Code Date Activated Date Inactivated Comments 03/21/2018 10:23 AM 03/21/2018 3:48 PM * Full Code Date Activated Date Inactivated Comments 03/21/2018 10:22 AM 03/21/2018 10:23 AM Care Teams Balloon Seller Relationship Specialty Start Date End Date Nikolai Abrams MD [address] [facility] [address] [place] [address] PCP - General Family Practice 02/09/24
--- OUTSIDE RECORDS SUMMARY | 2024-08-21 11:27 | XMS_ITS | Encounter Summary ---
Author Organization [facility] Healthcare Address [address] [place] [address] Care Team Providers Care Reading Tutor Name Role Phone Nikolai Abrams MD Primary Care [facility] Encounter Details Date Type Department Care Team (Late st Contact Info) Description 08/12/2024 Results Follow-Up [facility] Primary Care at [place] [address] [place] [address] [address] [place] [address] Nikolai Abrams MD [address] [facility] [address] [place] [address] Social History Tobacco Use Types [...] on file Legal Sex Female 8:54 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 Patient seen results on My Chart. documented in this encounter Plan of Treatment Not on file documented as of this encounter Visit Diagnoses Not on filedocumented in this encounter Care Teams Reading Tutor Relationship Specialty Start Date End Date Nikolai Abrams MD [address] [address] PCP - General Family Practice 02/09/24 documented as of this encounter
--- OUTSIDE RECORDS SUMMARY | 2024-08-21 11:27 | XMS_ITS | Clinical Summary ---
Author Organization [facility] Medical Office Building A Address [address] [place] [address] Care Team Providers Care Clipman Name Role Phone Nikolai Abrams MD Primary [...] 06/17/2020 Assessment & Plan (06/17/2020 11:51 AM [employer] BI CONSULTANT): Referral to her hand specialist as requested. Mallet deformity of left middle finger 9 Assessment & Plan (11/08/2018 1:52 PM CDT): Nine weeks s/p mallet injury and 7 weeks status post splinting inspector timers DIP is now at full extension She [...] (02/14/2018): Added automatically from request for surgery [id number] Generalized anxiety disorder 02/13/2018 Assessment & Plan [...] thereafter. Assessment & Plan (04/24/2018 4:31 AM MI[employer]OS[employer] BI CONSULTANT): Continue with Zoloft Assessment & Plan (04/21/2018 1:51 PM MICROS[employer]FT BI CONSULTANT): Well controlled on sertraline. Call back if [...] yearly. Colonoscopy due March 2028. Follow-up the certified ophthalmic medical technician as they direct. Will see her back in 1 year for physical fasting lab sooner if needed. Assessment & Plan (02/26/2021 1:23 PM CDT): Flu shot each February. Tetanus booster every 10 years. COVID vaccine completed. Mammogram yearly. Follow-up the certified ophthalmic medical technician for breast exam and pelvic exam as they direct. Colonoscopy due March 2028. Will see her back in 1 year for wellness visit fasting lab sooner if needed. Assessment & Plan (02/25/2020 1:38 PM CDT): Flu shot each February. Tetanus booster updated today. Shingrix completed. Colonoscopy due March 2028. Mammogram yearly. Follow-up the certified ophthalmic medical technician for breast exam and pelvic exam as [...] be ordered. Mammogram January 2019. Follow-up the certified ophthalmic medical technician for breast exam and pelvic exam as they direct. We will see her back in 2 months for follow-up of her anxiety sooner if needed. Assessment & Plan (02/10/2017 1:21 PM CDT): Flu shot each February. Tetanus booster every 10 years. Bone density scan every 2 years with her certified ophthalmic medical technician. Mammogram, breast exam, pelvic exam yearly with her certified ophthalmic medical technician. Achy legs probably result of her increased physical activity. No signs of vascular insufficiency today. Call back if no improvement. We will see her back in 1 year with fasting lab sooner if needed. B12 deficiency 12/28/2016 Assessment & Plan (04/12/2023 5:31 PM MICROS[employer]FT BI CONSULTANT): Continue supplementation check level yearly Assessment & [...] Hypothyroidism Assessment & Plan (07/11/2023 8:30 PM MICROSOFT BI CONSULTANT): Continue current dose of levothyroxine check TSH and FT4 before next visit adjust dose based on results. Assessment & Plan (04/12/2023 5:31 PM MICROSOFT BI CONSULTANT): Patient is asymptomatic on current dose of levothyroxine and TSH free T4 are normal and we will repeat levels before next visit. Assessment & Plan (03/01/2022 1:19 PM CDT): Increase levothyroxine to 75 mcg daily check TSH and FT4 in 8 weeks and call back for results. Assessment & Plan (05/05/2021 5:16 PM MICROSOFT BI CONSULTANT): Continue current dose of levothyroxine and check [...] visit. 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 Repeat due 04/2023 Assessment & Plan (04/12/2023 5:32 PM MICROS[employer]FT BI CONSULTANT): Calcium, vitamin-D, weight-bearing exercise repeat bone density [...] Calcium, vitamin-D, weight-bearing exercise and follow-up her certified ophthalmic medical technician for bone density scan as they direct. Assessment & Plan (02/10/2017 1:19 PM CDT): Calcium, vitamin-D, weight-bearing exercise. Repeat bone density scans every 2 years with her certified ophthalmic medical technician. Multiple-type hyperlipidemia 09/29/2013 Overview (08/20/2016): MIXED HYPERLIPIDEMIA Assessment & Plan (04/12/2023 5:31 PM MICROS[employer]FT BI CONSULTANT): Well controlled on current therapy and will check a lipid panel and LFTs in 12 months. Assessment & Plan (03/01/2022 1:19 PM CDT): Well controlled on current therapy and will check a lipid panel and LFTs in 12 months. Assessment & Plan (05/05/2021 5:16 PM MICROSOFT BI CONSULTANT): Continue current dose of pravastatin check lipids [...] months. Assessment & Plan (04/24/2018 4:30 AM MICROS[employer]FT BI CONSULTANT): Patient is on statin. Start on aspirin [...] 08/13/2024 Assessment & Plan (04/12/2023 5:32 PM MICROS[employer]FT BI CONSULTANT): We discussed a comprehensive list of medical conditions and proposed recommendations for each. We discussed the importance of increased exercise, fall prevention, proper nutrition, and suggested joining [facility] to accomplish most of these goals. Patient was given an age appropriate Medicare preventive services checklist. Please see the EMR regarding details of their health risk assessment and preventive services checklist. Will see her back in 1 year for wellness visit fasting lab sooner if needed At low risk for fall 04/12/2023 024 Assessment & Plan (04/12/2023 5:31 PM MI[employer]OS[employer]FT BI CONSULTANT): Timed get up and go test normal. Diverticulitis 02/02/2023 08/13/2024 Assessment & Plan (07/11/2023 8:29 PM MICROS[employer]FT BI CONSULTANT): Cipro metronidazole liquid diet and advance slowly [...] 025 Assessment & Plan (05/05/2021 5:16 PM MICROSOFT BI CONSULTANT): Suspicious for diverticulitis. Hold call CT of her abdomen pelvis and call back for results. CBC CMP amylase lipase and UA with micro and culture. Start Cipro and Flagyl. Warned of side effects advised not to drink alcohol with this. Call back if she does not have complete resolution of pain. Chest pain 04/24/2018 02/22/2019 Assessment & Plan (04/24/2018 4:33 AM MI[employer]OS[employer]FT BI CONSULTANT): Precordial chest pain. Patient's symptoms resolved with [...] Description 08/13/2024 10:00 AM CDT Office Visit [facility] Primary Care at [address] [address] Nikolai Abrams MD Encounter for Medicare annual wellness exam (Primary Dx); Multiple-type hyperlipidemia; Acquired hypothyroidism; B12 deficiency 08/12/2024 Results Follow-Up [facility] Primary Care at [address] [address] Nikolai Abrams MD 08/10/2024 11:58 AM CDT - 08/10/2024 11:59 PM CDT Hospital Encounter [address] [address] Hypothyroidism, unspecified type Discharge Disposition: Discharge to home or self care 08/10/2024 9:15 AM CDT Lab [facility] Outpatient Lab at [address] [address] 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 Telephone [facility] Primary Care at [address] [address] Nikolai Abrams MD Medical Question/Miscellane ous 07/01/2024 Results Follow-Up [facility] Primary Care at [address] [address] Nikolai Abrams MD 2024 8:52 AM [employer] BI CONSULTANT - 2024 11:59 PM [employer] BI CONSULTANT Hospital Encounter [facility] [address] [place] [address] Screening mammogram for breast cancer Discharge Disposition: Discharge to home or self care from Last 3 Months Immunizations Immunization Administration [...] HISTORY herniated disc repair : Dr Dominguez [facility] OTHER SURGICAL HISTORY right carpal tunnel surgery : Dr Dominguez [facility] OTHER SURGICAL HISTORY Lumbar spine diskectomy 09/24: Dr Dominguez OTHER SURGICAL HISTORY 05/16/1992 - 05/15/1993 ELENA, one ovary left (2/2 endometriosis) OTHER SURGICAL HISTORY 05/16/2014 - 05/15/2015 gi bleed : Medical Management OOPHORECTOMY FINGER TENDON REPAIR 12/12/2018 Left 3rd finger hammer repair CARPAL TUNNEL RELEASE 04/15/2019 - 05/15/2019 Left HYSTERECTOMY 05/16/1993 - 05/15/1994 Medical History Medical History Date Comments 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 Vertigo 2004 Vertigo Hx Other Medical HNP Hx Other Medical 02-ortho Hx Other Medical C section x2 19 88, 1986 Hx Other Medical 2006 L4-L5 fusion Hx Other Medical 03-podiatry Hx Other Medical Plantar Fasciit is Hx [...] 55 &37 Alzheimer's disease Brother 4 Jerry Jaspal Hypertension Brother 4 Jerry LevinJaspal Hypertension; a ge 52 Alzheimer's disease Brother 5 Eduardo Alzheime r's disease; Asthma Daughter Lenore Other Daughter Lenore segovia'claire disea se; Asthma Father Jerry Other Father Jerry comp s urg; Coronary artery disease Mother Luna Sethi naryue artery disease; Diabetes type II Mother Luna [...] on file Legal Sex Female 8:54 AM [employer] BI CONSULTANT Gender Identity Not on file Sexual Orientation Not on file Obstetrics History Para Term AB IAB SAB Ectopic Multiple Livin g Live Births 2 2 2 Date Outcome GA Total Labor Labor//3rd Weight Sex Type Anes PTL Chela A1 A5 Name Clin Term Term Last Filed Vital Signs Vital Sign Reading Time Taken Comments Blood Pressure 118/74 08/13/2024 9:59 AM CDT Pulse 93 08/13/2024 9:59 AM CDT Temperature 36 C (96.8 F) 08/13/2024 9:59 AM CDT Respiratory Rate 16 06/16/2023 3:44 PM [employer] BI CONSULTANT Oxygen Saturation 96% 08/13/2024 9:59 AM CDT Inhaled Oxygen Concentration - - Weight 75.6 kg (166 lb 9.6 oz) 08/13/2024 9:59 A M CDT Height 162.6 cm (5' 4 ) 08/13/2024 9:59 AM CDT Body Mass Index 28.6 08/13/2024 9:59 AM CDT Plan of Treatment Health Maintenance Due Date Last Done Comments Hepatitis B Screening 1973 Covid-19 Vaccine (8 - 4-2 5 season) 2024 02/28/2024, 02/06/2023, 01/22/2022, Additional history exists Osteoporosis Screening-Bone Density Scan 05/27/2025 05/27/2023, 04/23/2021, 02/20/2019, Additional history exists Breast Cancer Screening-Mammogram 2025 2024, 05/27/2023, 05/04/2022, Additional history exists Depression Screening 08/13/2025 08/13/2024, 02/09/2024, 06/16/2023, Additional history exists Fall Risk Assessment 08/13/2025 08/13/2024, 06/16/2023, 04/12/2023, Additional history exists Well Visit 65+ 08/13/2025 08/13/2024, 03/17, 03/01/2022, Additional history exists Colon Cancer Screening-Colonoscopy 03/21/2028 [...] Read Routine (OP Routine) 2024 8:59 AM [employer] BI CONSULTANT Screening mammogram for breast cancer DEXA AXIAL SKELETON BONE DENSITY 1 OR MORE SITES Schedule Routine, Read Routine (OP Routine) 05/27/2023 9:52 AM [employer] BI CONSULTANT Other specified disorders of bone density and structure, multiple sites COLONOSCOPY 03/21/2018 10:45 AM [employer]OS[employer]FT BI CONSULTANT HEPATITIS C RNA, QUANTITATIVE, PCR Routine 01/27/2017 9:44 AM CDT Need for hepatitis C screening test from Last 3 Months or Most Recently Relevant to Health Maintenance Results * TSH (08/10/2024 11:56 AM CDT) Thyroid Stimulating Hormone 1.77 0.30 - 4.20 mcIUnit/mL Blood 08/10/2024 11:5 6 AM CDT 08/10/2024 2:23 PM CDT Nikolai Abrams MD LAB BLOOD ORDERABLE S Final Result [facility] [address] [facility] Department [place] [address] * Screening Mammogram Bilateral W Homero (2024 8:59 AM MI[employer]OSOFT BI CONSULTANT) Anatomical Region Laterality Modality Breast Bilateral Mammography 2024 10:0 7 AM [employer] BI CONSULTANT Impressions 2024 10:07 AM [employer] BI CONSULTANT There is no mammographic evidence of malignancy. A 1 year screening mammogram is recommended. BI-RADS: 1 - Negative. The patient has been or will be contacted. The patient will be entered into a reminder system with a target due date of 1 year for her next mammogram. Electronically signed by: Charito Floyd M.D. Narrative 2024 10:07 AM [employer]FT BI CONSULTANT EXAMINATION: SCREENING MAMMOGRAM BILATERAL W HOMERO ORDERING [...] 1 or 2 Site (05/27/2023 9:52 AM MI[employer] BI CONSULTANT) Anatomical Region Laterality Modality Body N/A Other 05/27/2023 10:0 3 AM [employer]OSOFT BI CONSULTANT Narrative 05/27/2023 10:04 AM [employer]OFT BI CONSULTANT EXAM DESCRIPTION: DEXA AXIAL SKELETON BONE DENSITY 1 OR MORE SITES REASON FOR STUDY: 67 y/o year old F with given history of: Postmenopausal status. History of parent with hip fracture. Home Health Care Provider/Model: [facility] (S/N [id number]) CLINICAL INFORMATION: Current height: 64 inches Maximum [...] Georgie Zapien M.D. TW: MARYSE Report ID: [id number] Reading Location: [id number] Procedure Note Georgie Zapien MD - 05/27/2023 EXAM DESCRIPTION: DEXA AXIAL SKELETON BONE DENSITY 1 OR MORE SITES REASON FOR STUDY: 67 y/o year old F with given history of:Postmenopausal status. History of parent with hip fracture. Home Health Care Provider/Model: [facility] (S/N [id number]) CLINICAL INFORMATION: Current height: 64 inches Maximum [...] Georgie Zapien M.D. TW: TW Report ID: [id number] Reading Location: [place] [address] us Patricia Watson MD IMG DXA PROCEDURES Final Res ult * COLONOSCOPY (03/21/2018 10:45 AM [employer] BI CONSULTANT) Anatomical Region Laterality Modality Other Narrative Procedure Note Mike Carvalho MD - 03/21/2018 10:45 AM CST [facility] Patient Name: Hoa Awan Procedure Date: 03/21/2018 10:45 AM Date of : 1955 Admit Type: Outpatient Age: 62 Gender: Female Attending MD: Mike Carvalho M.D. Room: [facility] ENDOSCOPY ROOM 1 Note Status: [...] scope was passed under direct vision.The Colonoscope [id number] was introducedthrough the anus and advanced to [...] in this report are preliminary and upon passenger barge master reviewmay be revised to meet current compliance [...] of this assay have been determined by [facility]. The modifications have not been cleared or approved by the FDA. This assay has been validated pursuant to the CLIA regulations and is used for clinical purposes. This test was performed using the ROSALINE(R)AmpliPrep/ ROSALINE(R)TaqMan(R)HCV Test,v2.0. For more information on this test, go to: http://education.[employer]/faq/WID58d1 (This link is being provided for informational/ educational purposes only.) Blood specimen (specimen) 01/27/2017 9:44 AM CDT 01/28/2017 4:56 AM CDT Narrative Resulting Agency Comment Performing Organization Information: Site ID: [id number] Name: [facility] Address: [address] [place] [address] [place] [address] Director: Vamsi Zepeda D.O., MPH us Patricia Watson MD LAB MICROBIOLOGY - GENERAL O RDERABLES Final Result [facility] [employer] [facility] - ME[place]AN [employer] from Last 3 Months or Most Recently Relevant to Health Maintenance Insurance [place] MED[place] [address] [facility] [place] [address] MEDICARE [place] MEDICARE SUPPLEMENT Advance Directives For more information, please contact: [phone] * Full Code (Latest Code Status on File) Date Activated Date Inactivated Comments 04/23/2018 7:03 PM 04/24/2018 5:31 PM * Full Code Date Activated Date Inactivated Comments 04/23/2018 7:03 PM 04/23/2018 7:03 PM * Full Code Date Activated Date Inactivated Comments 03/21/2018 10:23 AM 03/21/2018 3:48 PM * Full Code Date Activated Date Inactivated Comments 03/21/2018 10:22 AM 03/21/2018 10:23 AM Care Teams Clipman Relationship Specialty Start Date End Date Nikolai Abrams MD [address] [facility] [address] [place] [address] PCP - General Family Practice 02/09/24
== END 2024-08-21 10:09 | disposition home or self-care (01) ==
PROVIDERS: Visit Provider Neurological Surgery
DX: M51.379 Other intervertebral disc degeneration, lumbosacral region without mention of lumbar back pain or lower extremity pain (principal); Z98.1 Arthrodesis status
CPT/HCPCS: 72100